=== PATIENT | male | born 1940 | race Caucasian/White ===

== ENCOUNTER → 2017-06-12 | Outpatient (CLI) | payer OTHER ==
[~2017-06-12] MED LIST: ASPCH81 PO; ATV1 PO; DONE1TAB26 PO; METO25TA3 PO; SIMV40TA2 PO; terazosin PO
[2017-06-12 11:48] LABS: BASO ABS # 0.08 K/uL (0-0.2); COMPLETE YES; EOS % 6.8 %; HEMATOCRIT 36.6 % (42-52); IG% 0.4 %; LYMPH % 17.4 %; LYMPH ABS # 1.39 K/uL (1.2-3.4); MEAN CELL VOLUME 95.6 fL (80-100); MEAN CORPUSCULAR HEMOGLOBIN 31.1 pg (25-34); MEAN CORPUSCULAR HGB CONC 32.5 g/dl (32-36); MEAN PLATELET VOLUME 10.3 fL (7.4-10.4); MONO % 9.1 %; NEUT % 65.3 %; PLATELET COUNT 210 K/uL (130-400); RED BLOOD COUNT 3.83 M/uL (4.7-6.1)
[2017-06-12 12:00] LABS: ALT/SGPT 21 U/L (12-78); AST/SGOT 22 U/L (15-37); BLOOD UREA NITROGEN 25 mg/dl (7-18); CALCIUM 8.9 mg/dl (8.5-10.1); CARBON DIOXIDE 27 mmol/L (21-32); CHLORIDE 107 mmol/L (98-107); GLUCOSE 88 mg/dl (70-99); SODIUM 141 mmol/L (136-145)
[2017-06-12 12:11] LABS: ALKALINE PHOSPHATASE 79 U/L (45-117); CHOLESTEROL 96 mg/dl (0-200); CHOLESTEROL/HDL RATIO 1.8; HDL CHOLESTEROL 52 mg/dl; LDL CHOLESTEROL CALCULATED 30 mg/dl; TRIGLYCERIDES 72 mg/dl (0-150); VERY LOW DENSITY LIPOPROT CALC 14 mg/dl
== END | disposition home or self-care (01) ==
LOC: C.LABPBG 09:19
PROVIDERS: ATTEND Internal Medicine
DX: I25.10 Atherosclerotic heart disease of native coronary artery without angina pectoris (principal); E78.5 Hyperlipidemia, unspecified; I10 Essential (primary) hypertension; N28.9 Disorder of kidney and ureter, unspecified; I65.29 Occlusion and stenosis of unspecified carotid artery; G47.33 Obstructive sleep apnea (adult) (pediatric); F09 Unspecified mental disorder due to known physiological condition; R73.9 Hyperglycemia, unspecified

== ENCOUNTER → 2017-12-11 | Outpatient (CLI) | payer OTHER ==
[2017-12-11 13:12] LABS: BASO % 0.8 %; BASO ABS # 0.07 K/uL (0-0.2); EOS % 6.3 %; EOS ABS # 0.52 K/uL (0-0.5); HEMATOCRIT 37.1 % (42-52); HEMOGLOBIN 12.1 g/dL (14.0-18.0); IG# 0.01 K/uL (0.00-0.02); LYMPH % 18.9 %; LYMPH ABS # 1.56 K/uL (1.2-3.4); MEAN CELL VOLUME 95.1 fL (80-100); MEAN CORPUSCULAR HGB CONC 32.6 g/dl (32-36); MEAN PLATELET VOLUME 10.7 fL (7.4-10.4); MONO % 10.4 %; MONO ABS # 0.86 K/uL (0.11-0.59); NEUT % 63.5 %; NEUT ABS # 5.22 K/uL (1.4-6.5); PLATELET COUNT 205 K/uL (130-400); RED CELL DISTRIBUTION WIDTH CV 13.1 % (11.5-14.5); RED CELL DISTRIBUTION WIDTH SD 45.1 fL (36.4-46.3); WHITE BLOOD COUNT 8.24 K/uL (4.8-10.8)
[2017-12-11 14:50] LABS: ALBUMIN 3.8 gm/dl (3.4-5.0); ALT/SGPT 23 U/L (12-78); AST/SGOT 20 U/L (15-37); BLOOD UREA NITROGEN 31 mg/dl (7-18); CARBON DIOXIDE 28 mmol/L (21-32); CREATININE 1.72 mg/dl (0.60-1.40); GLUCOSE 99 mg/dl (70-99); POTASSIUM 4.1 mmol/L (3.5-5.1); SODIUM 138 mmol/L (136-145)
[2017-12-11 14:53] LABS: ALKALINE PHOSPHATASE 79 U/L (45-117); CHOLESTEROL 95 mg/dl (0-200); LDL CHOLESTEROL CALCULATED 31 mg/dl; TOTAL PROTEIN 7.4 gm/dl (6.4-8.2)
== END | disposition home or self-care (01) ==
LOC: C.LABPBG 10:49
PROVIDERS: ATTEND Internal Medicine
DX: I25.10 Atherosclerotic heart disease of native coronary artery without angina pectoris (principal); E78.5 Hyperlipidemia, unspecified; I12.9 Hypertensive chronic kidney disease with stage 1 through stage 4 chronic kidney disease, or unspecified chronic kidney disease; I65.29 Occlusion and stenosis of unspecified carotid artery; F09 Unspecified mental disorder due to known physiological condition; D63.8 Anemia in other chronic diseases classified elsewhere; N18.3 Chronic kidney disease, stage 3 (moderate)

== ENCOUNTER 2024-02-25 14:19 | Inpatient (IN) ==
--- NOTE | 2024-02-25 15:04 | Emergency Department Note ---
Impression & Plan Dementia, Combative behavior ED Provider Note HISTORY OF PRESENT ILLNESS: Patient is an 83-year-old male presenting with increasing confusion and combativeness. History was called in by the [facility] nurse. Patient has a history of dementia. Family reportedly does not feel safe having him at home because he has been combative and threatening to hurt his family. He has been hitting his head off of the table. He had his normal dose of Seroquel this morning and Ativan. This occurred about 30 minutes prior to the ambulance arrival. Patient was still reportedly combative for EMS and they gave him 2 mg of IM Versed. On arrival to the ER. The patient is pleasantly confused but is unable to articulate what happened today. He denies any pain complaints. I called and spoke with hospice nurse, [place]. Reports that patient just returned from a respite stay 2 weeks ago. Reports patient has similar episodes and family is reluctant normally for placement. Patient gets 75 mg seroquel QAM and 50 mg QPM. Patient gets methotrexate 5 tablets weekly (Started on 02/21). Lorazepam 0.5 Q4H. ROS: as above PHYSICAL EXAM: Constitutional: Patient appears in no acute distress. HENT: Head: Normocephalic and atraumatic. Eyes: EOMI, PERRL Mouth/Throat: Mucous membranes moist. Neck: Trachea midline. Neck supple. Cardiovascular: RRR, No murmurs, rubs or gallops. Intact distal pulses. Pulmonary/Chest: No respiratory distress. Breath sounds clear and equal bilaterally. No wheezes or rales. Abdominal: Abdomen soft, no tenderness, rebound or guarding. Musculoskeletal: No edema, tenderness or deformity noted. Skin: Warm and dry. Skin tears to LLE Neurological: Alert. CN II-XII grossly intact, moving all extremities spontaneously. MDM: - Vitals signs showed bradycardia - History obtained via EMS and patient's hospice nurse, given patient's dementia. History as above. - Chronic conditions affecting care: HTN; CKD; dementia; depression;; GERD; aortic stenosis - Differential diagnoses include, but are not limited to: UTI; pneumonia; progression of dementia; electrolyte abnormality - Order placed for continuous cardiac monitoring. At this time, monitor showed rate of 60 bpm with normal sinus rhythm, per my interpretation. - External medical records reviewed. Palliative care report dated 02/14/2024 was reviewed. Hospice has been managing the patient's dementia and treating him with Seroquel and lorazepam. - Laboratory workup interpreted by myself showed slight leukocytosis (WBC 11.92) with left shift; normal electrolytes; baseline CKD - Given family's concern for safety and inability to care for the patient, will admit to hospital service for potential placement. - Discussion was had with briefcase sewer about patient's case and need for admission - Hospitalist consulted for admission - [facility] ASSESSMENT AND PLAN: Diagnosis: dementia; combative behavior Plan: admit Past Med/Surg History Problem List (Updated 02/25/24 @ 16:47 by Jessica Bhagat MD) Combative behavior (Acute) Dementia (Acute) Bullous pemphigoid Dementia with behavioral disturbance Non-occlusive coronary artery disease Lumbar stenosis with neurogenic claudication Aortic stenosis, mild Elevated PSA Thoracic aortic aneurysm without rupture (Chronic) Right subclavian artery, anomalous origin (Chronic) Raynauds phenomenon (Chronic) Obstructive sleep apnea (Chronic) Insomnia (Chronic) Gout, joint (Chronic) Gastroesophageal reflux disease (Chronic) Dyslipidemia (Chronic) Depression (Chronic) Dementia (Chronic) Decreased hearing of both ears (Chronic) Carotid artery stenosis without cerebral infarction (Chronic) CKD (chronic kidney disease), stage III (Chronic) Anxiety disorder (Chronic) Anemia of chronic disease (Chronic) Hypertension (Chronic) Medical History Abdominal aortic aneurysm Diverticulosis of colon Disc degeneration, lumbar Surgical History S/P correction of deviated nasal septum S/P sinus surgery S/P knee replacement S/P TURP (status post transurethral resection of prostate) Family History Brother Prostate cancer Mother Hypertension Hearing loss Father No problems noted. Denies family history of Ovarian cancer Breast cancer Lung cancer Colorectal cancer Social History Smoking Status: Never smoker Tobacco Type: Cigarettes Age Started Using Tobacco: 20; Age Quit Using Tobacco: 50; packs per day: 0.25; Second Hand Exposure: No; Do You Dip or Chew Tobacco: No; Hx Alcohol Use: No Hx Substance Use: No Preferred Language: Burmese Communication Ability: Effective Visual Impairment: Limited Hearing Ability: Hard of Hearing Line Tester Required: No Beliefs That Will Affect Care: None marital status: Current Living Situation: Spouse current occupational status: retired Feels Safe at Home: No Childhood Exposure to Second-Hand Smoke: No Diet: regular Diet Comment: regular caffeine: Yes (coffee) during the past year weight has: remained stable Dental Care, Regularly: Yes Physical Activity Frequency: Does not Exercise Physical Activity Frequency Comment: walking when weather good. Seatbelt Use: always Sunscreen Use: No Allergies Allergies Allergy/AdvReac Type Severity Reaction Status Date / Time mold Allergy Intermediate Verified 02/13/24 11:01 pollen extracts Allergy Intermediate Verified 02/13/24 11:01 venlafaxine Allergy Unknown Rash Verified 02/13/24 11:01 Home Meds Home Medications Medication Instructions Recorded Confirmed terazosin 2 mg capsule 4 mg PO HS 09/24/20 02/25/24 brimonidine 0.2 %-timolol 0.5 % 1 drp OPL BID 09/16/23 02/25/24 eye drops (Combigan) fluoxetine 10 mg capsule See Rx Instructions .Route .COMPLEX 09/16/23 02/25/24 latanoprost 0.005 % eye drops 1 drp OPL HS 09/16/23 02/25/24 memantine 21 mg capsule 21 mg PO HS 09/16/23 02/25/24 sprinkle,extended release 24hr simvastatin 40 mg tablet 40 mg PO HS 09/16/23 02/25/24 Previous Rx's Medication Instructions Recorded omeprazole 40 mg capsule,delayed 40 mg PO DAILY #90 caps 05/22/23 release amlodipine 2.5 mg tablet 2.5 mg PO DAILY #90 tabs 06/14/23 lorazepam 0.5 mg tablet 0.5 mg PO DAILY PRN insomnia 30 11/17/23 days #30 tabs fluoxetine 20 mg capsule 20 mg PO .COMPLEX #90 caps 12/01/23 donepezil 10 mg tablet 10 mg PO DAILY 90 days #90 tabs 01/16/24 quetiapine 100 mg tablet 100 mg PO BID PRN agitation 30 01/16/24 days #60 tabs doxycycline hyclate 100 mg capsule 100 mg PO BID 21 days #42 caps 02/13/24 mupirocin 2 % topical ointment 1 applic topical BID #50 grams 02/13/24 prednisone 20 mg tablet 40 mg (2 x 20 mg) PO DAILY 20 days 02/13/24 #40 tabs Results & Data (ED) Vital Signs Vital Signs - 24 hr 02/25/24 13:35 02/25/24 14:35 02/25/24 14:35 Temperature 37.4 C Temperature Source Oral Pulse Rate 57 L Respiratory Rate 16 16 Blood Pressure 127/71 Blood Pressure Mean 89 Pulse Oximetry 98 98 Oxygen Delivery Method Room Air Room Air Room Air Sepsis Recent Fever Within 48 Hours No Sepsis New/Unexplained Change in Mental Status N/A Sepsis Action Taken by Nursing No Action Required Laboratory Data 02/25/24 15:00 02/25/24 15:00 Lab Results 02/25/24 Range/Units 15:00 WBC 11.92 H (4.8-10.8) K/ul RBC 3.62 L (4.70-6.10) M/uL Hgb 10.7 L (14.0-18.0) g/dl Hct 33.5 L (42.0-52.0) % MCV 92.5 (80.0-100.0) fL MCH 29.6 (25.0-34.0) pg MCHC 31.9 L (32.0-36.0) g/dL RDW Std Deviation 47.6 H (36.4-46.3) fL RDW Coeff of Sue 14.0 (11.5-14.5) % Plt Count 232 (130-400) K/uL MPV 10.8 (9.4-12.4) fL Immature Gran % (Auto) 1.8 % Neut % (Auto) 88.0 % Lymph % (Auto) 4.9 % Swisher % (Auto) 4.9 % Eos % (Auto) 0.3 % Baso % (Auto) 0.1 % Neut # (Auto) 10.50 H (1.40-6.50) K/uL Lymph # (Auto) 0.58 L (1.20-3.40) K/uL Swisher # (Auto) 0.58 (0.11-0.59) K/uL Eos # (Auto) 0.03 (0.00-0.50) K/uL Baso # (Auto) 0.01 (0.00-0.20) K/uL Immature Gran # (Auto) 0.22 H (0.01-0.20) K/uL Sodium 136 (136-145) mmol/L Potassium 4.2 (3.5-5.1) mmol/L Chloride 103 (98-107) mmol/L Carbon Dioxide 28 (21-32) mmol/L Anion Gap 5 (3-11) BUN 42 H (6-23) mg/dl Creatinine 1.54 H (0.6-1.4) mg/dl Est Cr Clr Drug Dosing 37.6 ml/min Est GFR ( Amer) 47.6 ml/min Est GFR (Non-Af Amer) 41.1 ml/min BUN/Creatinine Ratio 27.3 H (10-20) Glucose 128 H (70-99(Fasting)) mg/dl Calcium 8.7 (8.6-10.3) mg/dl Magnesium 2.0 (1.7-2.4) mg/dl Total Bilirubin 0.3 (0.2-1.0) mg/dl AST 20 (13-39) U/L ALT 13 (7-52) U/L Alkaline Phosphatase 76 (34-104) U/L Total Protein 5.9 L (6.0-8.3) gm/dl Albumin 3.4 (3.4-5.0) gm/dl Globulin 2.5 (2.5-4.0) gm/dl Albumin/Globulin Ratio 1.4 (0.9-2) Discharge Plan Visit Data Chief Complaint: Confusion Stated Complaint: COMBATIVE, ED Provider: Jessica Bhagat Discharge Problem: Dementia, Combative behavior Forms Stand Alone Forms: My [facility] Prescriptions Prescriptions: No Action omeprazole 40 mg capsule,delayed release(DR/EC) 40 mg PO DAILY Qty: 90 3RF amlodipine 2.5 mg tablet 2.5 mg PO DAILY Qty: 90 3RF lorazepam 0.5 mg tablet 0.5 mg PO DAILY PRN (Reason: insomnia) 30 Days Qty: 30 2RF Rx Instructions: Pt takes at 5:00pm if needed fluoxetine 20 mg capsule 20 mg PO .COMPLEX Qty: 90 3RF Rx Instructions: 20 mg orally Take 1 capsule/day with each 10 mg capsule for total dose of 30 mg/day; donepezil 10 mg tablet 10 mg PO DAILY 90 Days Qty: 90 3RF quetiapine 100 mg tablet 100 mg PO BID PRN (Reason: agitation) 30 Days Qty: 60 5RF prednisone 20 mg tablet 40 mg PO DAILY 20 Days Qty: 40 0RF doxycycline hyclate 100 mg capsule 100 mg PO BID 21 Days Qty: 42 0RF Rx Instructions: should be finished around monday mupirocin 2 % ointment 1 applic topical BID Qty: 50 3RF terazosin 2 mg capsule 4 mg PO HS latanoprost 0.005 % drops 1 drp OPL HS brimonidine-timolol [Combigan] 0.2-0.5 % drops 1 drp OPL BID memantine 21 mg capsule,sprinkle,ER 24hr 21 mg PO HS Rx Instructions: Per spouse, pt hasn't started the 28mg dose yet that is listed on extended medication history. simvastatin 40 mg tablet 40 mg PO HS Rx Instructions: TAKE ONE TABLET BY MOUTH EVERY DAY fluoxetine 10 mg capsule See Rx Instructions .ROUTE .COMPLEX Rx Instructions: take 10mg with 20 mg cap for total dose of 30 mg per day Referrals Referrals: Tanja Luis, [Primary Care Provider] -
[2024-02-25 15:18] LABS: Basophils # (auto) 0.01 K/uL (0.00-0.20); Basophils % (auto) 0.1 %; Eosinophils # (auto) 0.03 K/uL (0.00-0.50); Eosinophils % (auto) 0.3 %; Hematocrit (blood only) 33.5 % (42.0-52.0); Hemoglobin 10.7 g/dl (14.0-18.0); Immature Granulocytes # (auto) 0.22 K/uL (0.01-0.20); Immature Granulocytes % (auto) 1.8 %; Lymphocytes # (auto) 0.58 K/uL (1.20-3.40); Lymphocytes % (auto) 4.9 %; Mean Corpuscular Hemoglobin 29.6 pg (25.0-34.0); Mean Corpuscular Hgb Conc 31.9 g/dL (32.0-36.0); Mean Corpuscular Volume 92.5 fL (80.0-100.0); Mean Platelet Volume 10.8 fL (9.4-12.4); Monocytes # (auto) 0.58 K/uL (0.11-0.59); Monocytes % (auto) 4.9 %; Platelet Count 232 K/uL (130-400); RDW Standard Deviation 47.6 fL (36.4-46.3); Red Blood Count 3.62 M/uL (4.70-6.10); White Blood Count 11.92 K/ul (4.8-10.8)
[2024-02-25 15:40] LABS: Albumin Globulin Ratio 1.4 (0.9-2); Albumin Level 3.4 gm/dl (3.4-5.0); BUN Creatinine Ratio 27.3 (10-20); Bilirubin,Total 0.3 mg/dl (0.2-1.0); Calcium 8.7 mg/dl (8.6-10.3); Creatinine Clr Calc Pharmacy 37.6 ml/min; Est GFR (African American) 47.6 ml/min; Est GFR (Non-African American) 41.1 ml/min; Globulin 2.5 gm/dl (2.5-4.0); Potassium 4.2 mmol/L (3.5-5.1); Total Protein 5.9 gm/dl (6.0-8.3)
--- NOTE | 2024-02-25 16:05 | History & Physical Report ---
Date of Service February 25, 2024 Assessment & Plan (1) Dementia with behavioral disturbance: Plan: Agitation and combative behavior the morning of 02/24 Patient is currently enrolled in hospice, but lives at home Family is concerned for self-harm behavior, and the safety of family members, and are okay dis-enrolling him from hospice for placement One-to-one sitter Donepezil 10 mg p.o. daily Memantine HS Seroquel 100 mg p.o. BID PRN for agitation Additional Ativan 0.5 mg IV q8h as needed for agitation Fall precautions Case management consult placed for SNF placement A.m. CBC, BMP x 1 (2) Bullous pemphigoid: Plan: Patient was recently placed on prednisone 40 mg daily x 20 days for development of a rash on his body Per PCP note, suspected bullous pemphigoid; unclear if this was secondary to a drug reaction Prednisone may be contributing to his uncontrolled agitation Family decreased to 20 mg a couple days ago Will continue with prednisone 10 mg daily, and titrate down as tolerated Daily wound care Continue doxycycline 100 mg p.o. BID to completion of 20 day course (prescribed x 20 days; will complete on 03/14/24) Mupirocin BID (3) Insomnia: Plan: Patient normally takes lorazepam 0.5 mg PRN at night for insomnia Melatonin HS PRN (4) Leukocytosis: Plan: Likely secondary to steroid use UA ordered, pending Bladder scan as needed (5) Anemia: Plan: Mild; chronic; Hgb 10.7 on arrival No signs of active bleeding on clinical exam Recheck a.m. CBC (6) CKD (chronic kidney disease), stage III: Plan Disposition: Admit to [facility] Full code Regular diet, easy to chew (aspiration precautions) VTE PPx: Hold mechanical DVT PPx given lesions/rashes on the LEs; will hold chemical DVT PPx as patient is a high risk fall candidate (consider adding on for extended stay) History of Present Illness Chief Complaint: Confusion, combative behavior Primary Care Provider: DO Vineet Luis is an 83yo male with PMH of dementia, ANITHA, anxiety, depression, HTN, CKD, anemia of chronic disease, and dyslipidemia. He presented via EMS from home for combative behavior on 02/24. Patient is currently on hospice for his advanced dementia; he is seen by [facility] nursing; however he lives at home. This morning, he received his regular dementia medications (3 tablets of Seroquel and 1 of Ativan) but still developed agitation for approximately 1.5 hours. Patient's daughter/ are in the room and provide history. They report that he was yelling, screaming, and swinging at the ellison. At 1 point he was being on the window and they were concerned he was going to break it. Patient's daughter also was concerned he might of been hallucinating. This is not the first time that he has become agitated, but this was the first time they were unable to get him under control. While patient denied suicidal ideations or voiced self-harm, he did express thoughts and ideas of harming others; daughter reports he said, "I will get a gun and shoot you". Versed 2 mg IM was given en route at 1340 prior to arrival. The patient's daughter believes this may be secondary to recently starting prednisone on 02/12 for a skin outbreak. Patient was placed on prednisone 40 mg daily, but recently decreased it to 20 mg daily as they believed it was increasing his agitation. The rash on his body was originally thought to be bulbous pemphigoid, as patient reports it was very itchy. While patient is currently on hospice for his advanced dementia, family does not feel he is safe at home and would like for him to be placed. They are okay dis-enrolling him from hospice if needed so that the patient can be admitted. They do not feel he is safe at home, and they are concerned he will harm others. Patient is mildly bradycardic at 57 bpm at time of admission; vitals otherwise stable. ED course: Unable to obtain ROS from patient at this time. However, patient and patient's daughter at bedside report no complaints of fever, chills, sweating, chest pain, trouble breathing, or abdominal pain. Allergies Allergy/AdvReac Type Severity Reaction Status Date / Time mold Allergy Intermediate Verified 02/13/24 11:01 pollen extracts Allergy Intermediate Verified 02/13/24 11:01 venlafaxine Allergy Unknown Rash Verified 02/13/24 11:01 Home Medications Medication Instructions Recorded Confirmed Type terazosin 2 mg capsule 4 mg PO HS 09/24/20 02/25/24 History omeprazole 40 mg capsule,delayed 40 mg PO DAILY #90 caps 05/22/23 02/25/24 Rx release amlodipine 2.5 mg tablet 2.5 mg PO DAILY #90 tabs 06/14/23 02/25/24 Rx brimonidine 0.2 %-timolol 0.5 % 1 drp OPL BID 09/16/23 02/25/24 History eye drops (Combigan) fluoxetine 10 mg capsule See Rx Instructions .Route .COMPLEX 09/16/23 02/25/24 History latanoprost 0.005 % eye drops 1 drp OPL HS 09/16/23 02/25/24 History memantine 21 mg capsule 21 mg PO HS 09/16/23 02/25/24 History sprinkle,extended release 24hr simvastatin 40 mg tablet 40 mg PO HS 09/16/23 02/25/24 History lorazepam 0.5 mg tablet 0.5 mg PO DAILY PRN insomnia 30 11/17/23 02/25/24 Rx days #30 tabs fluoxetine 20 mg capsule 20 mg PO .COMPLEX #90 caps 12/01/23 02/25/24 Rx donepezil 10 mg tablet 10 mg PO DAILY 90 days #90 tabs 01/16/24 02/25/24 Rx quetiapine 100 mg tablet 100 mg PO BID PRN agitation 30 01/16/24 02/25/24 Rx days #60 tabs doxycycline hyclate 100 mg capsule 100 mg PO BID 21 days #42 caps 02/13/24 02/25/24 Rx mupirocin 2 % topical ointment 1 applic topical BID #50 grams 02/13/24 02/25/24 Rx prednisone 20 mg tablet 40 mg (2 x 20 mg) PO DAILY 20 days 02/13/24 02/25/24 Rx #40 tabs Past Med/Surg History Problem List (Updated 02/25/24 @ 17:36 by Graham Kirk PA-C) Anemia Rash Leukocytosis Combative behavior (Acute) Dementia (Acute) Bullous pemphigoid Dementia with behavioral disturbance Non-occlusive coronary artery disease Lumbar stenosis with neurogenic claudication Aortic stenosis, mild Elevated PSA Thoracic aortic aneurysm without rupture (Chronic) Right subclavian artery, anomalous origin (Chronic) Raynauds phenomenon (Chronic) Obstructive sleep apnea (Chronic) Insomnia (Chronic) Gout, joint (Chronic) Gastroesophageal reflux disease (Chronic) Dyslipidemia (Chronic) Depression (Chronic) Dementia (Chronic) Decreased hearing of both ears (Chronic) Carotid artery stenosis without cerebral infarction (Chronic) CKD (chronic kidney disease), stage III (Chronic) Anxiety disorder (Chronic) Anemia of chronic disease (Chronic) Hypertension (Chronic) Medical History (Updated 02/25/24 @ 17:36 by Graham Kirk PA-C) Abdominal aortic aneurysm Diverticulosis of colon Disc degeneration, lumbar Surgical History S/P correction of deviated nasal septum S/P sinus surgery S/P knee replacement S/P TURP (status post transurethral resection of prostate) Family History Brother Prostate cancer Mother Hypertension Hearing loss Father No problems noted. Denies family history of Ovarian cancer Breast cancer Lung cancer Colorectal cancer Social History Smoking Status: Never smoker Tobacco Type: Cigarettes Age Started Using Tobacco: 20; Age Quit Using Tobacco: 50; packs per day: 0.25; Second Hand Exposure: No; Do You Dip or Chew Tobacco: No; Hx Alcohol Use: No Hx Substance Use: No Preferred Language: Palauan Communication Ability: Effective Visual Impairment: Limited Hearing Ability: Hard of Hearing Joinery Machinist Required: No Beliefs That Will Affect Care: None marital status: Current Living Situation: Spouse current occupational status: retired Feels Safe at Home: No Childhood Exposure to Second-Hand Smoke: No Diet: regular Diet Comment: regular caffeine: Yes (coffee) during the past year weight has: remained stable Dental Care, Regularly: Yes Physical Activity Frequency: Does not Exercise Physical Activity Frequency Comment: walking when weather good. Seatbelt Use: always Sunscreen Use: No Review of Systems 2 Review of Systems: See HPI above Physical Exam 2 Physical Exam: General: no acute distress; non-toxic appearing; frail appearing; cooperative at time of admission; SpO2 98% on RA HEENT: normocephalic, atraumatic; no scleral icterus; PERRLA; moist mucus membrane; unable to assess vision and hearing Neck: supple; no lymphadenopathy; trachea midline Skin: warm, dry without signs of tenting; no cyanosis; numerous rashes and lesions noted on the chest, back, and lower extremities (see photos below) CV: chest wall NTP; RRR; S1/S2 normal; no murmurs/rubs/gallops; pulses intact and symmetric at radial, DP, and PT Lungs: no acute respiratory distress; symmetrical chest wall expansion; clear breath sounds across all lung owusu w/o adventitious sounds; no wheezing ABD: Soft, NTP; BS present; no rebound/guarding; no distention MSK: no tics or fasciculations; no edema noted in the LEs b/l, nonerythematous, but lesions noted (see photos below) Neuro: Not oriented to name, , location, or month; does not respond to questioning; no focal deficits; unable to assess sensation Results & Data Results & Data Vital Signs (Past 12 Hours) Vital Signs Temp Pulse Resp BP Pulse Ox O2 Del Method 02/25/24 14:35 16 98 Room Air 02/25/24 14:35 Room Air 02/25/24 13:35 37.4 C 57 L 16 127/71 98 Room Air Laboratory Results Abnormal lab results 02/25/24 Range/Units 15:00 WBC 11.92 H (4.8-10.8) K/ul RBC 3.62 L (4.70-6.10) M/uL Hgb 10.7 L (14.0-18.0) g/dl Hct 33.5 L (42.0-52.0) % MCHC 31.9 L (32.0-36.0) g/dL RDW Std Deviation 47.6 H (36.4-46.3) fL Neut # (Auto) 10.50 H (1.40-6.50) K/uL Lymph # (Auto) 0.58 L (1.20-3.40) K/uL Immature Gran # (Auto) 0.22 H (0.01-0.20) K/uL BUN 42 H (6-23) mg/dl Creatinine 1.54 H (0.6-1.4) mg/dl BUN/Creatinine Ratio 27.3 H (10-20) Glucose 128 H (70-99(Fasting)) mg/dl Total Protein 5.9 L (6.0-8.3) gm/dl Code Status & VTE Plan Code Status Full code (patient does not exhibit capacity to make medical decisions at this time; discussed with patient's and two daughters at the bedside; despite being on hospice, patient's /POA confirms that he is a FULL CODE at time of admission and would want life-sustaining treatment, such as CPR/defibrillation/intubation, if needed) VTE Prophylaxis Plan VTE Prophylaxis will be ordered: Yes Supervising Physician Co-Signing Physician Notes I have personally seen, evaluated and examined the patient. I have also personally discussed the management of the patient with the resident physician/EFREN and I agree with the exam findings documented in the history and physical examination and the documented assessment and plan unless otherwise stated below. Brief Exam: In general this is a pleasant 83-year-old male who is alert and oriented only to person. He is pleasantly demented at this time. He is not combative at this time. He is accompanied by his 2 daughters Kori Watkins, as well his as his . He has no complaints currently. HEENT: Normocephalic atraumatic. Heart: Regular rate and rhythm I do not appreciate murmur. Lungs: Clear bilaterally. Abdomen: Soft and nontender. Extremities: Intact no significant clubbing cyanosis or edema. Skin: As described above being treated for bullous pemphigoid currently as an outpatient. On a steroid taper. This will be escalated due to his worsening mental status and combativeness. Currently on 10 mg which started the family believes on Monday. Dermatology consult could be considered on day shift if not resolving. He has lesions on his torso ventral aspect as well as his legs. See pictures above Neurologically: Again alert and oriented only to person. Again not combative at this time but apparently was quite combative earlier today prior to medications. Will order one-on-one observation sitter at this time this can be discontinued if the patient stabilizes with his behaviors. Assessment/plan: As described above. Please refer to orders for further planning. PG Care Time/CCT Total # of Minutes Spent Total Time Spent with Patient: Total time spent is greater than 50% in coordination of care (as documented) at patient's floor/unit and/or counseling patient: C[place] [address] INT INP/OBS CARE 3/75MIN Patient Type Established Medical Decision Making Moderate Complexity Diagnoses Dementia with behavioral disturbance F03.918 Bullous pemphigoid L12.0 Insomnia G47.00 Leukocytosis D72.829 Anemia D64.9 Anemia type: unspecified type CKD (chronic kidney disease), stage III N18.30 Chronic kidney disease stage 3 subtype: unspecified whether 3a or 3b (5) Anemia Anemia type: unspecified type Qualified Code(s): D64.9 - Anemia, unspecified (6) CKD (chronic kidney disease), stage III Chronic kidney disease stage 3 subtype: unspecified whether 3a or 3b Qualified Code(s): N18.30 - Chronic kidney disease, stage 3 unspecified
[2024-02-25 17:51] LABS: Appearance Urine Clear (Clear); Bilirubin Urine Negative (Negative); Blood Urine Negative (Negative); Color Urine Yellow; Glucose Urine UA Negative (Negative); Ketones Urine Negative (Negative); Leukocyte Esterase Urine Negative (Negative); Nitrite Urine Negative (Negative); Protein Urine Negative (Negative); Specific Gravity Urine 1.016 (1.000-1.030); Urobilinogen Urine Negative (Negative); pH Urine 7.5 (4.5-7.5)
[2024-02-25] MEDS ORDERED: QUEtiapine FUMARATE 100 MG TABLET PO PRN (18:50)
[2024-02-25 20:08] LABS: BUN Creatinine Ratio 26.6 (10-20); Calcium 8.8 mg/dl (8.6-10.3); Creatinine Clr Calc Pharmacy 40.5 ml/min; Est GFR (African American) 52.1 ml/min
[2024-02-25] MEDS: ACETAMINOPHEN 325 MG TAB PO PRN (20:13)
[2024-02-25] MEDS: TERAZOSIN HCL 1 MG CAP PO SCH (20:14)
[2024-02-25] MEDS: MUPIROCIN 2% OINT 22 GM TUBE TOP SCH (20:14)
[2024-02-25] MEDS: LATANOPROST 0.005% OP SOLN 2.5 ML BTL OPL SCH (20:15)
[2024-02-25] MEDS: SIMVASTATIN 40 MG TAB PO SCH (20:15)
[2024-02-25] MEDS: DOXYCYCLINE HYCLATE 100 MG CAP PO SCH (20:15)
[2024-02-25] MEDS: FLUoxetine HCL 10 MG CAP PO SCH (21:47)
[2024-02-25] MEDS: FLUoxetine HCL 20 MG CAP PO SCH (21:47)
[2024-02-25] MEDS: MEMANTINE HCL 5 MG TAB PO SCH (21:47)
[2024-02-26 06:10] LABS: Basophils # (auto) 0.03 K/uL (0.00-0.20); Basophils % (auto) 0.3 %; Eosinophils # (auto) 0.15 K/uL (0.00-0.50); Eosinophils % (auto) 1.3 %; Hematocrit (blood only) 29.5 % (42.0-52.0); Hemoglobin 9.5 g/dl (14.0-18.0); Immature Granulocytes # (auto) 0.32 K/uL (0.01-0.20); Immature Granulocytes % (auto) 2.7 %; Lymphocytes # (auto) 2.03 K/uL (1.20-3.40); Mean Corpuscular Hemoglobin 29.4 pg (25.0-34.0); Mean Corpuscular Hgb Conc 32.2 g/dL (32.0-36.0); Mean Corpuscular Volume 91.3 fL (80.0-100.0); Mean Platelet Volume 10.5 fL (9.4-12.4); Monocytes % (auto) 10.1 %; Neutrophils % (auto) 68.6 %; Platelet Count 217 K/uL (130-400); RDW Coefficient of Variation 13.9 % (11.5-14.5); RDW Standard Deviation 46.8 fL (36.4-46.3); Red Blood Count 3.23 M/uL (4.70-6.10); White Blood Count 11.93 K/ul (4.8-10.8)
[2024-02-26] MEDS: predniSONE 10 MG TABLET PO SCH (09:25)
[2024-02-26] MEDS: PANTOprazole 40 MG TAB PO SCH (09:25)
[2024-02-26] MEDS: DONEPEZIL HCL 10 MG TAB PO SCH (09:26)
[2024-02-26] MEDS: LORazepam 0.5 MG in SYRINGE 0.25 ML IV PRN (09:35)
[2024-02-26] MEDS: QUEtiapine FUMARATE 25 MG TABLET PO SCH (10:21)
[2024-02-26] MEDS: amLODIPine BESYLATE 5 MG TAB PO SCH (10:31)
--- NOTE | 2024-02-26 12:14 | Hospitalist Progress Note ---
Date of Service February 26, 2024 Assessment & Plan (1) Dementia with behavioral disturbance: Plan: Seroquel 50 mg twice daily scheduled dosing. Prozac has been discontinued. Supportive care. He also takes Aricept and Namenda.. Family is seeking SNF placement (2) Bullous pemphigoid: Plan: Patient was recently placed on prednisone 40 mg daily x 20 days for a rash. Suspected bullous pemphigoid per PCP. Prednisone has been down titrated this admission. He also remains on oral doxycycline through March 14. (3) Insomnia: Plan: Patient normally takes lorazepam 0.5 mg PRN at night for insomnia. Melatonin HS PRN (4) Leukocytosis: Plan: Likely secondary to steroid use. No overt evidence of infection (5) Anemia: Plan: Mild. Chronic. No signs of active GI bleeding. (6) CKD (chronic kidney disease), stage III: Plan: Serial labs. Monitor intake and output. Stable Plan Anticipate SNF placement when arrangements are finalized. Admission and Anticipated Discharge Date Admission Date: February 25, 2024 Subjective Awake. Oriented x 1. Unpleasant. Seroquel started at 50 mg twice daily scheduled dosing. Prednisone has already been tapered down. Prozac has been discontinued now that he is on Seroquel. Prozac probably had little effect anyway on his current symptoms and is only adding potential drug interaction. Review of Systems 2 Review of Systems: The patient is unable or unwilling to answer any questions regarding review of systems at this time Physical Exam 2 Physical Exam: General-alert and oriented x1, unpleasant. No fever, no chills HEENT-head atraumatic and normocephalic, pupils equal and reactive to light, extraocular muscles intact Neck-no lymphadenopathy or thyromegaly, trachea midline Chest-clear to auscultation. No rales, wheezing or rhonchi Cardiac-regular rate and rhythm, normal S1 and S2 Abdomen-normal bowel sounds, no hepatosplenomegaly Extremities-no cyanosis, clubbing, or edema Neuro-cranial nerves II through XII intact, motor and sensory function within normal limits, strength symmetrical, no focal deficits Psych- unpleasant affect. Results & Data Results & Data Vital Signs (Past 12 Hours) Vital Signs Temp Pulse Resp BP Pulse Ox O2 Del Method 02/26/24 10:30 36.9 C 58 L 16 165/87 H 96 Room Air Laboratory Results 02/26/24 05:41 02/25/24 19:26 PG Care Time/CCT Total # of Minutes Spent Total Time Spent with Patient: Total time spent is greater than 50% in coordination of care (as documented) at patient's floor/unit and/or counseling patient: Coding Level of Care Code 07805 SUB INP/OBS CARE 3/50MIN Diagnoses Dementia with behavioral disturbance F03.918 Bullous pemphigoid L12.0 Insomnia G47.00 Leukocytosis D72.829 Anemia D64.9 Anemia type: unspecified type CKD (chronic kidney disease), stage III N18.30 Chronic kidney disease stage 3 subtype: unspecified whether 3a or 3b (5) Anemia Anemia type: unspecified type Qualified Code(s): D64.9 - Anemia, unspecified (6) CKD (chronic kidney disease), stage III Chronic kidney disease stage 3 subtype: unspecified whether 3a or 3b Qualified Code(s): N18.30 - Chronic kidney disease, stage 3 unspecified
[2024-02-26] MEDS: BRIMONIDINE TARTRATE 0.2% 5ML OPL SCH (22:10)
[2024-02-26] MEDS: TIMOLOL MALEATE 0.5% OP SOLN 5 ML BTL OPL SCH (22:11)
--- NOTE | 2024-02-27 13:03 | Hospitalist Progress Note ---
Date of Service February 27, 2024 Assessment & Plan (1) Dementia with behavioral disturbance: Plan: Seroquel 50 mg twice daily scheduled dosing appears to have helped. Prozac has been discontinued. Supportive care. He also takes Aricept and Namenda.. Family is seeking SNF placement (2) Bullous pemphigoid: Plan: Patient was recently placed on prednisone 40 mg daily x 20 days for a rash. Suspected bullous pemphigoid per PCP. Prednisone has been down titrated this admission. He also remains on oral doxycycline through March 14. (3) Insomnia: Plan: Patient normally takes lorazepam 0.5 mg PRN at night for insomnia. Melatonin HS PRN (4) Leukocytosis: Plan: Likely secondary to steroid use. No overt evidence of infection (5) Anemia: Plan: Mild. Chronic. No signs of active GI bleeding. (6) CKD (chronic kidney disease), stage III: Plan: Serial labs. Monitor intake and output. Stable Plan Anticipate SNF placement when arrangements are finalized. He is medically stable for discharge Admission and Anticipated Discharge Date Admission Date: February 25, 2024 Subjective Alert. He seems in better spirits today, February 26. He is now on twice daily scheduled dosing of Seroquel. He chronically has difficulty voiding and bladder volume is being watched with ultrasound. He remains on his terazosin. SNF placement is pending. Review of Systems 2 Review of Systems: The patient is unable or unwilling to answer any questions regarding review of systems at this time Physical Exam 2 Physical Exam: General-alert and oriented x1, more pleasant today, February 26. No fever, no chills HEENT-head atraumatic and normocephalic, pupils equal and reactive to light, extraocular muscles intact Neck-no lymphadenopathy or thyromegaly, trachea midline Chest-clear to auscultation. No rales, wheezing or rhonchi Cardiac-regular rate and rhythm, normal S1 and S2 Abdomen-normal bowel sounds, no hepatosplenomegaly Extremities-no cyanosis, clubbing, or edema Neuro-cranial nerves II through XII intact, motor and sensory function within normal limits, strength symmetrical, no focal deficits Psych-normal affect. Normal mood Results & Data Results & Data Vital Signs (Past 12 Hours) Vital Signs Temp Pulse Resp BP Pulse Ox O2 Del Method 02/27/24 09:10 139/65 02/27/24 07:47 36.8 C 53 L 18 177/76 H 98 Room Air 02/27/24 05:15 36.4 C L 63 20 176/81 H 99 Room Air Laboratory Results 02/26/24 05:41 02/25/24 19:26 PG Care Time/CCT Total # of Minutes Spent Total Time Spent with Patient: Total time spent is greater than 50% in coordination of care (as documented) at patient's floor/unit and/or counseling patient: Coding Level of Care Code 67702 SUB INP/OBS CARE 2/35MIN Diagnoses Dementia with behavioral disturbance F03.918 Bullous pemphigoid L12.0 Insomnia G47.00 Leukocytosis D72.829 Anemia D64.9 Anemia type: unspecified type CKD (chronic kidney disease), stage III N18.30 Chronic kidney disease stage 3 subtype: unspecified whether 3a or 3b (5) Anemia Anemia type: unspecified type Qualified Code(s): D64.9 - Anemia, unspecified (6) CKD (chronic kidney disease), stage III Chronic kidney disease stage 3 subtype: unspecified whether 3a or 3b Qualified Code(s): N18.30 - Chronic kidney disease, stage 3 unspecified
[2024-02-27] MEDS: MELATONIN 3 MG TAB PO PRN (20:42)
[2024-02-27] MEDS: TRIAMCINOLONE ACET 0.5% CR 15 GM TUBE EXT SCH (20:44)
[2024-02-28] MEDS ORDERED: TRIAMCINOLONE ACET 0.1% OINT 454 GM EXT PRN (11:31)
--- NOTE | 2024-02-28 16:26 | Hospitalist Progress Note ---
Date of Service February 28, 2024 Assessment & Plan (1) Dementia with behavioral disturbance: Plan: Seroquel 50 mg twice daily scheduled dosing appears to have helped. Prozac has been discontinued. Supportive care. He also takes Aricept and Namenda. Family is seeking SNF placement at [place] (2) Bullous pemphigoid: Plan: Patient was recently placed on prednisone 40 mg daily x 20 days for a rash. Suspected bullous pemphigoid per PCP. Prednisone has been down titrated this admission. He also remains on oral doxycycline through March 14. (3) Insomnia: Plan: Patient normally takes lorazepam 0.5 mg PRN at night for insomnia. Melatonin HS PRN (4) Leukocytosis: Plan: Likely secondary to steroid use. No overt evidence of infection (5) Anemia: Plan: Mild. Chronic. No signs of active GI bleeding. (6) CKD (chronic kidney disease), stage III: Plan: Serial labs. Monitor intake and output. Stable Plan Anticipate SNF placement when arrangements are finalized. He is medically stable for discharge, hopefully to [place] tomorrow, February 28 Admission and Anticipated Discharge Date Admission Date: February 25, 2024 Subjective Awake and alert. He appears to be much more calm. He is taking his Seroquel 50 mg twice daily. Prozac has been discontinued. Awaiting placement at [facility]. Hopefully tomorrowFebruary 28. His was at the bedside and I was able to speak with her Review of Systems 2 Review of Systems: The patient is unable or unwilling to answer any questions regarding review of systems at this time Physical Exam 2 Physical Exam: General-alert and oriented x1, pleasant now. No fever, no chills HEENT-head atraumatic and normocephalic, pupils equal and reactive to light, extraocular muscles intact Neck-no lymphadenopathy or thyromegaly, trachea midline Chest-clear to auscultation. No rales, wheezing or rhonchi Cardiac-regular rate and rhythm, normal S1 and S2 Abdomen-normal bowel sounds, no hepatosplenomegaly Extremities-no cyanosis, clubbing, or edema Neuro-cranial nerves II through XII intact, motor and sensory function within normal limits, strength symmetrical, no focal deficits Psych-normal affect. Normal mood Results & Data Results & Data Vital Signs (Past 12 Hours) Vital Signs Temp Pulse Resp BP Pulse Ox O2 Del Method 02/28/24 14:33 36.8 C 60 17 126/81 98 Room Air 02/28/24 07:59 36.5 C 52 L 16 145/66 H 100 Room Air 02/28/24 07:30 Room Air Laboratory Results 02/26/24 05:41 02/25/24 19:26 PG Care Time/CCT Total # of Minutes Spent Total Time Spent with Patient: Total time spent is greater than 50% in coordination of care (as documented) at patient's floor/unit and/or counseling patient: Coding Level of Care Code 80964 SUB INP/OBS CARE 2/35MIN Diagnoses Dementia with behavioral disturbance F03.918 Bullous pemphigoid L12.0 Insomnia G47.00 Leukocytosis D72.829 Anemia D64.9 Anemia type: unspecified type CKD (chronic kidney disease), stage III N18.30 Chronic kidney disease stage 3 subtype: unspecified whether 3a or 3b (5) Anemia Anemia type: unspecified type Qualified Code(s): D64.9 - Anemia, unspecified (6) CKD (chronic kidney disease), stage III Chronic kidney disease stage 3 subtype: unspecified whether 3a or 3b Qualified Code(s): N18.30 - Chronic kidney disease, stage 3 unspecified
[2024-02-28] MEDS: OLANZapine 10 MG/2.1 ML SDV IM STA (17:55)
[2024-02-28] MEDS: QUEtiapine FUMARATE 25 MG TABLET PO SCH (20:46)
[2024-02-29 08:42] VITALS: RESP 16; O2SAT 99
[2024-02-29] MEDS: OLANZapine 10 MG/2.1 ML SDV IM PRN (09:39)
--- NOTE | 2024-02-29 11:37 | Discharge Summary ---
Date of Service February 29, 2024 Admission HPI Per Admitting Provider Vineet is an 83yo male with PMH of dementia, ANITHA, anxiety, depression, HTN, CKD, anemia of chronic disease, and dyslipidemia. He presented via EMS from home for combative behavior on 02/24. Patient is currently on hospice for his advanced dementia; he is seen by [facility] nursing; however he lives at home. This morning, he received his regular dementia medications (3 tablets of Seroquel and 1 of Ativan) but still developed agitation for approximately 1.5 hours. Patient's daughter/ are in the room and provide history. They report that he was yelling, screaming, and swinging at the [place]. At 1 point he was being on the window and they were concerned he was going to break it. Patient's daughter also was concerned he might of been hallucinating. This is not the first time that he has become agitated, but this was the first time they were unable to get him under control. While patient denied suicidal ideations or voiced self-harm, he did express thoughts and ideas of harming others; daughter reports he said, "I will get a gun and shoot you". Versed 2 mg IM was given en route at 1340 prior to arrival. The patient's daughter believes this may be secondary to recently starting prednisone on 02/12 for a skin outbreak. Patient was placed on prednisone 40 mg daily, but recently decreased it to 20 mg daily as they believed it was increasing his agitation. The rash on his body was originally thought to be bulbous pemphigoid, as patient reports it was very itchy. While patient is currently on hospice for his advanced dementia, family does not feel he is safe at home and would like for him to be placed. They are okay dis-enrolling him from hospice if needed so that the patient can be admitted. They do not feel he is safe at home, and they are concerned he will harm others. Patient is mildly bradycardic at 57 bpm at time of admission; vitals otherwise stable. ED course: Unable to obtain ROS from patient at this time. However, patient and patient's daughter at bedside report no complaints of fever, chills, sweating, chest pain, trouble breathing, or abdominal pain. Principal Diagnosis Dementia with agitation Discharge Exam General-alert and oriented x1. Agitated. No fever, no chills HEENT-head atraumatic and normocephalic, pupils equal and reactive to light, extraocular muscles intact Neck-no lymphadenopathy or thyromegaly, trachea midline Chest-clear to auscultation. No rales, wheezing or rhonchi Cardiac-regular rate and rhythm, normal S1 and S2 Abdomen-normal bowel sounds, no hepatosplenomegaly Extremities-no cyanosis, clubbing, or edema Neuro-cranial nerves II through XII intact, motor and sensory function within normal limits, strength symmetrical, no focal deficits Psych-dementia with agitation Discharge Data Allergies Allergy/AdvReac Type Severity Reaction Status Date / Time mold Allergy Intermediate Verified 02/13/24 11:01 pollen extracts Allergy Intermediate Verified 02/13/24 11:01 venlafaxine Allergy Unknown Rash Verified 02/13/24 11:01 Consultations 02/25/24 16:03 ED Decision to Admit Stat Hospital Course (1) Dementia with behavioral disturbance: Seroquel has been uptitrated to 75 mg twice a day and will be increased further to 100 mg twice a day. Prozac, Aricept and Namenda have been discontinued. Supportive care. Family has now decided to take the patient home with hospice care. (2) Bullous pemphigoid: Patient was recently placed on prednisone 40 mg daily x 20 days for a rash. Suspected bullous pemphigoid per PCP. Prednisone was down titrated this admission and subsequently discontinued as this may be aggravating his behavior. He remains on oral doxycycline through March 14. (3) Insomnia: Patient normally takes lorazepam 0.5 mg PRN at night for insomnia. Melatonin HS PRN (4) Leukocytosis: Likely secondary to steroid use. No overt evidence of infection (5) Anemia: Mild. Chronic. No signs of active GI bleeding. (6) CKD (chronic kidney disease), stage III: Serial labs. Monitor intake and output. Stable Plan Family has opted to go home with hospice care today, February 28 Total Time Total Time Spent Total Time Spent (In Minutes): 50 minutes Discharge Plan Discharge Items Patient Disposition: Hospice - Home Reason For Visit: DEMENTIA, COMBATIVE BEHAVIOR Discharge Diagnosis: Dementia with agitation Activity: Resume your previous activity Non-emergency contact: Primary Care Provider Call non-emergency contact if: your symptoms worsen Follow-up/Referrals: Tanja Luis DO [Primary Care Provider] - Diet: Regular Addtl Attending Provider Instructions: Takes Seroquel 100 mg twice daily. Prozac, Aricept, Namenda have been discontinued. Prednisone has also been discontinued Pending Studies at Discharge: No Stand-Alone Forms: My [facility] Medications and DC Order Prescriptions: New quetiapine 100 mg tablet 100 mg PO BID Qty: 60 0RF Continued omeprazole 40 mg capsule,delayed release(DR/EC) 40 mg PO DAILY Qty: 90 3RF amlodipine 2.5 mg tablet 2.5 mg PO DAILY Qty: 90 3RF lorazepam 0.5 mg tablet 0.5 mg PO DAILY PRN (Reason: insomnia) 30 Days Qty: 30 2RF Rx Instructions: Pt takes at 5:00pm if needed doxycycline hyclate 100 mg capsule 100 mg PO BID 21 Days Qty: 42 0RF Rx Instructions: should be finished around monday mupirocin 2 % ointment 1 applic topical BID Qty: 50 3RF terazosin 2 mg capsule 4 mg PO HS latanoprost 0.005 % drops 1 drp OPL HS brimonidine-timolol [Combigan] 0.2-0.5 % drops 1 drp OPL BID simvastatin 40 mg tablet 40 mg PO HS Rx Instructions: TAKE ONE TABLET BY MOUTH EVERY DAY Discontinued fluoxetine 20 mg capsule 20 mg PO .COMPLEX Qty: 90 3RF Rx Instructions: 20 mg orally Take 1 capsule/day with each 10 mg capsule for total dose of 30 mg/day; donepezil 10 mg tablet 10 mg PO DAILY 90 Days Qty: 90 3RF quetiapine 100 mg tablet 100 mg PO BID PRN (Reason: agitation) 30 Days Qty: 60 5RF prednisone 20 mg tablet 40 mg PO DAILY 20 Days Qty: 40 0RF memantine 21 mg capsule,sprinkle,ER 24hr 21 mg PO HS Rx Instructions: Per spouse, pt hasn't started the 28mg dose yet that is listed on extended medication history. fluoxetine 10 mg capsule See Rx Instructions .ROUTE .COMPLEX Rx Instructions: take 10mg with 20 mg cap for total dose of 30 mg per day Discharge Orders: Discharge Order (Routine); Ordered 02/29/24 Ordered By: Jose Carlos Suarez Admission Data Admit Date/Time: 02/25/24 16:40 Attending Provider: Erick,Jose Carlos R. Admit Provider: Peter Barclay Primary Care Provider: Tanja Luis Other [facility]: [facility] Barclay[facility] [place] Coding Level of Care Code 60219 INP/OBS DISCH >30 MIN Diagnoses Dementia with behavioral disturbance F03.918 Bullous pemphigoid L12.0 Insomnia G47.00 Leukocytosis D72.829 Anemia D64.9 Anemia type: unspecified type CKD (chronic kidney disease), stage III N18.30 Chronic kidney disease stage 3 subtype: unspecified whether 3a or 3b
--- NOTE | 2024-02-29 15:18 | Hospitalist Progress Note ---
Date of Service February 29, 2024 Assessment & Plan (1) Dementia with behavioral disturbance: Plan: Seroquel now uptitrated to 100 mg twice a day. Lorazepam 0.5 mg twice a day has been added. He takes lorazepam at home. Prozac, Aricept and Namenda have been discontinued to minimize potential drug interactions with addition of Seroquel. Supportive care. Family has now decided to take the patient home with hospice care but are unwilling to take him home today because of behavior issues. (2) Bullous pemphigoid: Plan: Patient was recently placed on prednisone 40 mg daily x 20 days for a rash. Suspected bullous pemphigoid per PCP. Prednisone was down titrated this admission and subsequently discontinued as this may be aggravating his behavior. He remains on oral doxycycline through March 14. (3) Insomnia: Plan: Patient normally takes lorazepam 0.5 mg PRN at night for insomnia. Melatonin HS PRN (4) Leukocytosis: Plan: Likely secondary to steroid use. No overt evidence of infection (5) Anemia: Plan: Mild. Chronic. No signs of active GI bleeding. (6) CKD (chronic kidney disease), stage III: Plan: Serial labs. Monitor intake and output. Stable Plan Family has opted to go home with hospice care but are hesitant to take him home today, February 28. Anticipated discharge has been canceled. Admission and Anticipated Discharge Date Admission Date: February 25, 2024 Subjective Continued behavior issues. Seroquel is now 100 mg twice a day and lorazepam has been started which she takes at home. Family is now stating they are uncomfortable taking him home. Prednisone is discontinued as this may be aggravating his behavior. Anticipated discharge has been canceled Review of Systems 2 Review of Systems: The patient is unable or unwilling to answer any questions regarding review of systems at this time Physical Exam 2 Physical Exam: General-alert but disoriented. No fever, no chills HEENT-head atraumatic and normocephalic, pupils equal and reactive to light, extraocular muscles intact Neck-no lymphadenopathy or thyromegaly, trachea midline Chest-clear to auscultation. No rales, wheezing or rhonchi Cardiac-regular rate and rhythm, normal S1 and S2 Abdomen-normal bowel sounds, no hepatosplenomegaly Extremities-no cyanosis, clubbing, or edema Neuro-cranial nerves II through XII intact, motor and sensory function within normal limits, strength symmetrical, no focal deficits Psych-baseline dementia Results & Data Results & Data Vital Signs (Past 12 Hours) Vital Signs Temp Pulse Resp BP Pulse Ox O2 Del Method 02/29/24 08:39 36.8 C 54 L 16 171/70 H 99 Room Air 02/29/24 07:30 Room Air Laboratory Results 02/26/24 05:41 02/25/24 19:26 PG Care Time/CCT Total # of Minutes Spent Total Time Spent with Patient: Total time spent is greater than 50% in coordination of care (as documented) at patient's floor/unit and/or counseling patient: Coding Level of Care Code 54771 SUB INP/OBS CARE 3/50MIN Diagnoses Dementia with behavioral disturbance F03.918 Bullous pemphigoid L12.0 Insomnia G47.00 Leukocytosis D72.829 Anemia D64.9 Anemia type: unspecified type CKD (chronic kidney disease), stage III N18.30 Chronic kidney disease stage 3 subtype: unspecified whether 3a or 3b (5) Anemia Anemia type: unspecified type Qualified Code(s): D64.9 - Anemia, unspecified (6) CKD (chronic kidney disease), stage III Chronic kidney disease stage 3 subtype: unspecified whether 3a or 3b Qualified Code(s): N18.30 - Chronic kidney disease, stage 3 unspecified
[2024-02-29] MEDS: QUEtiapine FUMARATE 100 MG TABLET PO SCH (20:20)
[2024-02-29] MEDS: LORazepam 0.5 MG TAB PO SCH (20:20)
[2024-03-01 11:47] VITALS: BP 151/83; PULSE 62; TEMP 97.7
--- NOTE | 2024-03-01 12:06 | Discharge Summary ---
Date of Service March 01, 2024 Admission HPI Per Admitting Provider Vineet is an 83yo male with PMH of dementia, ANITHA, anxiety, depression, HTN, CKD, anemia of chronic disease, and dyslipidemia. He presented via EMS from home for combative behavior on 02/24. Patient is currently on hospice for his advanced dementia; he is seen by [facility] nursing; however he lives at home. This morning, he received his regular dementia medications (3 tablets of Seroquel and 1 of Ativan) but still developed agitation for approximately 1.5 hours. Patient's daughter/ are in the room and provide history. They report that he was yelling, screaming, and swinging at the [place]. At 1 point he was being on the window and they were concerned he was going to break it. Patient's daughter also was concerned he might of been hallucinating. This is not the first time that he has become agitated, but this was the first time they were unable to get him under control. While patient denied suicidal ideations or voiced self-harm, he did express thoughts and ideas of harming others; daughter reports he said, "I will get a gun and shoot you". Versed 2 mg IM was given en route at 1340 prior to arrival. The patient's daughter believes this may be secondary to recently starting prednisone on 02/12 for a skin outbreak. Patient was placed on prednisone 40 mg daily, but recently decreased it to 20 mg daily as they believed it was increasing his agitation. The rash on his body was originally thought to be bulbous pemphigoid, as patient reports it was very itchy. While patient is currently on hospice for his advanced dementia, family does not feel he is safe at home and would like for him to be placed. They are okay dis-enrolling him from hospice if needed so that the patient can be admitted. They do not feel he is safe at home, and they are concerned he will harm others. Patient is mildly bradycardic at 57 bpm at time of admission; vitals otherwise stable. ED course: Unable to obtain ROS from patient at this time. However, patient and patient's daughter at bedside report no complaints of fever, chills, sweating, chest pain, trouble breathing, or abdominal pain. Principal Diagnosis Dementia with agitation Discharge Exam General-alert but disoriented. No fever, no chills HEENT-head atraumatic and normocephalic, pupils equal and reactive to light, extraocular muscles intact Neck-no lymphadenopathy or thyromegaly, trachea midline Chest-clear to auscultation. No rales, wheezing or rhonchi Cardiac-regular rate and rhythm, normal S1 and S2 Abdomen-normal bowel sounds, no hepatosplenomegaly Extremities-no cyanosis, clubbing, or edema Neuro-cranial nerves II through XII intact, motor and sensory function within normal limits, strength symmetrical, no focal deficits Psych-baseline dementia Discharge Data Allergies Allergy/AdvReac Type Severity Reaction Status Date / Time mold Allergy Intermediate Verified 02/13/24 11:01 pollen extracts Allergy Intermediate Verified 02/13/24 11:01 venlafaxine Allergy Unknown Rash Verified 02/13/24 11:01 Consultations 02/25/24 16:03 ED Decision to Admit Stat Hospital Course (1) Dementia with behavioral disturbance: Seroquel now uptitrated to 100 mg twice a day. Lorazepam 0.5 mg twice a day has been added. He takes lorazepam at home. Prozac, Aricept and Namenda have been discontinued to minimize potential drug interactions with addition of Seroquel. Supportive care. Family has now decided to take the patient to [facility]. (2) Bullous pemphigoid: Patient was recently placed on prednisone 40 mg daily x 20 days for a rash. Suspected bullous pemphigoid per PCP. Prednisone was down titrated this admission and subsequently discontinued as this may be aggravating his behavior. He remains on oral doxycycline through March 14. (3) Insomnia: Patient normally takes lorazepam 0.5 mg PRN at night for insomnia. Melatonin HS PRN (4) Leukocytosis: Likely secondary to steroid use. No overt evidence of infection (5) Anemia: Mild. Chronic. No signs of active GI bleeding. (6) CKD (chronic kidney disease), stage III: Serial labs. Monitor intake and output. Stable Plan Discharge to [facility] today, March 01 Total Time Total Time Spent Total Time Spent (In Minutes): 50 minutes Discharge Plan Discharge Items Patient Disposition: Transfer Jail Fac Reason For Visit: DEMENTIA, COMBATIVE BEHAVIOR Discharge Diagnosis: Dementia with agitation Activity: Resume your previous activity Non-emergency contact: Primary Care Provider Call non-emergency contact if: your symptoms worsen Follow-up/Referrals: Tanja Luis DO [Primary Care Provider] - 03/06/24 2:00 pm () Diet: Regular Addtl Attending Provider Instructions: Takes Seroquel 100 mg twice daily. Prozac, Aricept, Namenda have been discontinued. Prednisone has also been discontinued Pending Studies at Discharge: No Stand-Alone Forms: My [facility] Skilled Items Patient informed of condition?: Yes DNR: Yes Discharge Level of Care: Skilled Communicable Disease: No Discharge Prognosis: Stable Lines: None Urinary Catheter: No Medications and DC Order Prescriptions: New quetiapine 100 mg tablet 100 mg PO BID Qty: 60 0RF quetiapine 100 mg Tablet 100 mg PO BID Qty: 60 0RF lorazepam 0.5 mg Tablet 0.5 mg PO BID Qty: 60 0RF Continued omeprazole 40 mg capsule,delayed release(DR/EC) 40 mg PO DAILY Qty: 90 3RF amlodipine 2.5 mg tablet 2.5 mg PO DAILY Qty: 90 3RF lorazepam 0.5 mg tablet 0.5 mg PO DAILY PRN (Reason: insomnia) 30 Days Qty: 30 2RF Rx Instructions: Pt takes at 5:00pm if needed doxycycline hyclate 100 mg capsule 100 mg PO BID 21 Days Qty: 42 0RF Rx Instructions: should be finished around monday mupirocin 2 % ointment 1 applic topical BID Qty: 50 3RF terazosin 2 mg capsule 4 mg PO HS latanoprost 0.005 % drops 1 drp OPL HS brimonidine-timolol [Combigan] 0.2-0.5 % drops 1 drp OPL BID simvastatin 40 mg tablet 40 mg PO HS Rx Instructions: TAKE ONE TABLET BY MOUTH EVERY DAY Discontinued fluoxetine 20 mg capsule 20 mg PO .COMPLEX Qty: 90 3RF Rx Instructions: 20 mg orally Take 1 capsule/day with each 10 mg capsule for total dose of 30 mg/day; donepezil 10 mg tablet 10 mg PO DAILY 90 Days Qty: 90 3RF quetiapine 100 mg tablet 100 mg PO BID PRN (Reason: agitation) 30 Days Qty: 60 5RF prednisone 20 mg tablet 40 mg PO DAILY 20 Days Qty: 40 0RF memantine 21 mg capsule,sprinkle,ER 24hr 21 mg PO HS Rx Instructions: Per spouse, pt hasn't started the 28mg dose yet that is listed on extended medication history. fluoxetine 10 mg capsule See Rx Instructions .ROUTE .COMPLEX Rx Instructions: take 10mg with 20 mg cap for total dose of 30 mg per day Discharge Orders: Discharge Order (Routine); Ordered 03/01/24 Ordered By: Jose Carlos Portillo/Other Patient Handouts: Dementia Caregiver Tips, Delirium and Dementia Admission Data Admit Date/Time: 02/25/24 16:40 Attending Provider: Jose Carlos Suarez Admit Provider: Peter Barclay Primary Care Provider: Tanja Luis Other Providers: Peter Barclay; Saul Delgado; [facility]; Saul Preston at [place] Other Interventions: Discharge Summary Assessment (RN) Last Done: 02/29/24 12:01 Coding Level of Care Code 31711 INP/OBS DISCH >30 MIN Diagnoses Dementia with behavioral disturbance F03.918 Bullous pemphigoid L12.0 Insomnia G47.00 Leukocytosis D72.829 Anemia D64.9 Anemia type: unspecified type CKD (chronic kidney disease), stage III N18.30 Chronic kidney disease stage 3 subtype: unspecified whether 3a or 3b
== END 2024-03-01 14:15 | DRG 884 ==
LOC: ED 14:19 → 3W 16:40 → SUATTDRO 16:40 → 3W 17:26

== ENCOUNTER 2024-09-14 16:22 | Inpatient (IN) ==
--- NOTE | 2024-09-14 16:46 | Emergency Department Note ---
Impression & Plan Acute UTI (urinary tract infection), AMS (altered mental status) ED Provider Note HISTORY OF PRESENT ILLNESS: Patient is an 83-year-old male presenting with aggressive behavior. [facility] called to give report and states that the patient lives at home with his . He is currently on hospice care for his dementia. Reportedly the patient is on a waiting list for a long-term, but the patient has become too much to care for by his . He started to become very physically aggressive with the starting yesterday and continuing into today. [facility] reports that the patient needs to be admitted for placement. Patient is demented and supplies no meaningful history. He is yelling profanities at staff and attempts to hit staff or throw things at staff. ROS: as above PHYSICAL EXAM: Constitutional: Patient appears in no acute distress. HENT: Head: Normocephalic and atraumatic. Eyes: EOMI, PERRL Mouth/Throat: Mucous membranes moist. Neck: Trachea midline. Neck supple. Musculoskeletal: No edema, tenderness or deformity noted. Skin: Warm and dry. No rash, erythema, pallor or cyanosis Neurological: Alert and spontaneously moves extremities. Attempts to throw pulse ox at examiner MDM: - Vitals signs showed hypertension - History obtained via [facility] nurse via phone, given patient's dementia. History as above. - Chronic conditions affecting care: dementia; HTN; depression; HLD; ANITHA - Differential diagnoses include, but are not limited to: UTI; viral syndrome; pneumonia; electrolyte abnormality - Order placed for continuous cardiac monitoring. At this time, monitor showed rate of 75 bpm with normal sinus rhythm, per my interpretation. - External medical records reviewed. Transitional care visit note dated 04/05/2024 was reviewed. Patient was admitted to [facility] on 02/25/2024 with combative behavior from home. He had some medication changes during his admission. - EKG interpreted by myself showed normal sinus rhythm. Rate 70 bpm. QT 412. No acute ischemic changes. - Laboratory workup interpreted by myself showed normal WBC; stable electrolytes; elevated troponin (26.7) - UA showed evidence of infection. Given 2g IV rocephin - Viral respiratory panel negative - CXR negative for pneumonia, per my interpretation - Discussion was had with outsole caser about patient's case and need for admission - Hospitalist, Dr. Hubbard, consulted for admission - Patient admitted to [place] [facility]ist service for further evaluation and management. ASSESSMENT AND PLAN: Diagnosis: acute UTI; altered mental status Plan: admit Past Med/Surg History Problem List (Updated 09/14/24 @ 19:07 by Jessica Bhagat MD) AMS (altered mental status) (Acute) Acute UTI (urinary tract infection) (Acute) Rash Leukocytosis Combative behavior (Acute) Bullous pemphigoid Dementia with behavioral disturbance Non-occlusive coronary artery disease Lumbar stenosis with neurogenic claudication Aortic stenosis, mild Elevated PSA Thoracic aortic aneurysm without rupture (Chronic) Right subclavian artery, anomalous origin (Chronic) Raynauds phenomenon (Chronic) Obstructive sleep apnea (Chronic) Gout, joint (Chronic) Gastroesophageal reflux disease (Chronic) Dyslipidemia (Chronic) Depression (Chronic) Dementia (Chronic) Decreased hearing of both ears (Chronic) Carotid artery stenosis without cerebral infarction (Chronic) Anxiety disorder (Chronic) Anemia of chronic disease (Chronic) Hypertension (Chronic) Medical History (Updated 09/14/24 @ 19:07 by Jessica Bhagat MD) Anemia Insomnia CKD (chronic kidney disease), stage III Abdominal aortic aneurysm Diverticulosis of colon Disc degeneration, lumbar Surgical History S/P correction of deviated nasal septum S/P sinus surgery S/P knee replacement S/P TURP (status post transurethral resection of prostate) Family History Brother Prostate cancer Mother Hypertension Hearing loss Father No problems noted. Denies family history of Ovarian cancer Breast cancer Lung cancer Colorectal cancer Social History Smoking Status: Unknown if ever smoked Tobacco Type: Cigarettes Age Started Using Tobacco: 20; Age Quit Using Tobacco: 50; packs per day: 0.25; Second Hand Exposure: No; Do You Dip or Chew Tobacco: No; Hx Alcohol Use: No Hx Substance Use: No Preferred Language: [place] Communication Ability: Impaired Visual Impairment: Limited Hearing Ability: Hard of Hearing Chief Of Service Required: No Beliefs That Will Affect Care: None marital status: Current Living Situation: Family current occupational status: retired Feels Safe at Home: Yes Childhood Exposure to Second-Hand Smoke: No Diet: regular Diet Comment: regular caffeine: Yes (coffee) during the past year weight has: remained stable Dental Care, Regularly: Yes Physical Activity Frequency: Does not Exercise Physical Activity Frequency Comment: walking when weather good. Seatbelt Use: always Sunscreen Use: No Assistive Devices: Cane, Walker and Wheelchair Allergies Allergies Allergy/AdvReac Type Severity Reaction Status Date / Time mold Allergy Intermediate Verified 04/05/24 13:39 pollen extracts Allergy Intermediate Verified 04/05/24 13:39 venlafaxine Allergy Unknown Rash Verified 04/05/24 13:39 Home Meds Home Medications Medication Instructions Recorded Confirmed terazosin 2 mg capsule 4 mg PO HS 09/24/20 04/05/24 brimonidine 0.2 %-timolol 0.5 % 1 drp OPL BID 09/16/23 04/05/24 eye drops (Combigan) latanoprost 0.005 % eye drops 1 drp OPL HS 09/16/23 04/05/24 simvastatin 40 mg tablet 40 mg PO HS 09/16/23 04/05/24 brexpiprazole 1 mg tablet (Rexulti) 1 mg PO DAILY 04/05/24 04/05/24 ferrous fumarate 325 mg (106 mg 325 mg PO DAILY 04/05/24 04/05/24 iron) tablet folic acid 1 mg tablet 1 mg PO DAILY 04/05/24 04/05/24 methotrexate sodium 2.5 mg tablet 12.5 mg PO .Wednesdays04/05/24 04/05/24 quetiapine 25 mg tablet 25 mg PO HS 04/05/24 04/05/24 Previous Rx's Medication Instructions Recorded amlodipine 2.5 mg tablet 2.5 mg PO DAILY #90 tabs 06/14/23 lorazepam 0.5 mg tablet 0.5 mg PO DAILY PRN insomnia 30 11/17/23 days #30 tabs mupirocin 2 % topical ointment 1 applic topical BID #50 grams 02/13/24 omeprazole 40 mg capsule,delayed 40 mg PO DAILY #90 caps 07/02/24 release memantine 10 mg tablet 10 mg PO BID #60 tabs 07/03/24 Results & Data (ED) Vital Signs Vital Signs - 24 hr 09/14/24 16:34 09/14/24 16:34 09/14/24 17:48 Temperature 36.8 C Temperature Source Axillary Pulse Rate 74 Pulse Rate [Apical] 68 Respiratory Rate 17 19 Respiratory Effort / Characteristics Non-Labored Spontaneous Non-Labored Spontaneous Respiratory Depth Normal Normal Respiratory Pattern Regular Regular Blood Pressure 161/68 H Blood Pressure [Left Arm] 127/68 Blood Pressure Mean 99 Blood Pressure Mean [Left Arm] 87 Blood Pressure Position [Left Arm] Left Lateral Pulse Oximetry 98 100 Oxygen Delivery Method Room Air Room Air Room Air Sepsis Recent Fever Within 48 Hours No Sepsis New/Unexplained Change in Mental Status No Sepsis Action Taken by Nursing No Action Required 09/14/24 17:48 09/14/24 17:50 Temperature Temperature Source Pulse Rate 68 68 Pulse Rate [Apical] Respiratory Rate 20 Respiratory Effort / Characteristics Respiratory Depth Respiratory Pattern Blood Pressure Blood Pressure [Left Arm] Blood Pressure Mean Blood Pressure Mean [Left Arm] Blood Pressure Position [Left Arm] Pulse Oximetry 100 Oxygen Delivery Method Room Air Sepsis Recent Fever Within 48 Hours Sepsis New/Unexplained Change in Mental Status Sepsis Action Taken by Nursing Laboratory Data 09/14/24 17:48 09/14/24 17:48 Lab Results 09/14/24 09/14/24 09/14/24 Range/Units 16:44 17:48 18:14 WBC 10.42 (4.8-10.8) K/ul RBC 3.34 L (4.70-6.10) M/uL Hgb 10.2 L (14.0-18.0) g/dl Hct 32.5 L (42.0-52.0) % MCV 97.3 (80.0-100.0) fL MCH 30.5 (25.0-34.0) pg MCHC 31.4 L (32.0-36.0) g/dL RDW Std Deviation 54.2 H (36.4-46.3) fL RDW Coeff of Sue 15.1 H (11.5-14.5) % Plt Count 262 (130-400) K/uL MPV 10.5 (9.4-12.4) fL Immature Gran % (Auto) 0.7 % Neut % (Auto) 69.3 % Lymph % (Auto) 15.3 % [place] % (Auto) 10.5 % Eos % (Auto) 3.4 % Baso % (Auto) 0.8 % Neut # (Auto) 7.24 H (1.40-6.50) K/uL Lymph # (Auto) 1.59 (1.20-3.40) K/uL [place] # (Auto) 1.09 H (0.11-0.59) K/uL Eos # (Auto) 0.35 (0.00-0.50) K/uL Baso # (Auto) 0.08 (0.00-0.20) K/uL Immature Gran # (Auto) 0.07 (0.01-0.20) K/uL PT 11.0 (9.0-12.0) Seconds INR 1.0 (0.9-1.1) Sodium 139 (136-145) mmol/L Potassium 4.2 (3.5-5.1) mmol/L Chloride 106 (98-107) mmol/L Carbon Dioxide 28 (21-32) mmol/L Anion Gap 5 (3-11) BUN 38 H (6-23) mg/dl Creatinine 1.21 (0.6-1.4) mg/dl Est Cr Clr Drug Dosing 42.6 ml/min eGFR 59.41 BUN/Creatinine Ratio 31.4 H (10-20) Glucose 106 H (70-99(Fasting)) mg/dl Calcium 8.8 (8.6-10.3) mg/dl Magnesium 2.0 (1.7-2.4) mg/dl Total Bilirubin 0.4 (0.2-1.0) mg/dl AST 16 (13-39) U/L ALT 8 (7-52) U/L Alkaline Phosphatase 73 (34-104) U/L Troponin I High Sens 26.7 H (0-20) pg/ml Total Protein 6.7 (6.0-8.3) gm/dl Albumin 3.3 L (3.4-5.0) gm/dl Globulin 3.4 (2.5-4.0) gm/dl Albumin/Globulin Ratio 1.0 (0.9-2) TSH 2.453 (0.300-4.500) uIu/ml Urine Color Yellow Urine Appearance Clear (Clear) Urine pH 7.5 (4.5-7.5) Ur Specific [place] 1.020 (1.000-1.030) Urine Protein Trace H (Negative) Urine Glucose (UA) Negative (Negative) Urine Ketones Negative (Negative) Urine Blood Negative (Negative) Urine Nitrite Positive A (Negative) Urine Bilirubin Negative (Negative) Urine Urobilinogen Negative (Negative) Ur Leukocyte Esterase 2+ H (Negative) Urine WBC (Auto) >50 H (0-5) /hpf Urine RBC (Auto) 0-2 (0-2) /hpf U Hyaline Cast (Auto) 3-5 H (0-2) /lpf U Epithel Cells (Auto) 0-2 (0-2) /hpf Urine Bacteria (Auto) 4+ H (None Seen) Adenovirus (PCR) Not Detected (NotDetected) B. pertussis DNA (PCR) Not Detected (NotDetected) B.parapertussis DNA PCR Not Detected (NotDetected) C. pneumoniae DNA (PCR) Not Detected (NotDetected) Coronavirus OC43 (PCR) Not Detected (NotDetected) Coronavirus HKU1 (PCR) Not Detected (NotDetected) Coronavirus 229E (PCR) Not Detected (NotDetected) SARS-CoV-2 (PCR) Not Detected (NotDetected) Coronavirus NL63 (PCR) Not Detected (NotDetected) Human Metapneumovir PCR Not Detected (NotDetected) Influenza Type A (PCR) Not Detected (NotDetected) Influenza Type B (PCR) Not Detected (NotDetected) M. pneumoniae (PCR) Not Detected (NotDetected) Parainfluenza 1 (PCR) Not Detected (NotDetected) Parainfluenza 2 (PCR) Not Detected (NotDetected) Parainfluenza 3 (PCR) Not Detected (NotDetected) Parainfluenza 4 (PCR) Not Detected (NotDetected) RSV (PCR) Not Detected (NotDetected) Entero/Rhino (PCR) Not Detected (NotDetected) Administered Medications Discontinued Medications Lorazepam (Lorazepam 2 Mg/1 Ml Vial) 1 mg IM NOW STA Stop: 09/14/24 16:43 Last Admin: 09/14/24 16:48 Dose: 1 mg Documented By: ANGEL LUIS Discharge Plan Visit Data Chief Complaint: Altered Mental Status Stated Complaint: ALTERED MENTAL STATUS ED Provider: Jessica Bhagat Discharge Problem: Acute UTI (urinary tract infection), AMS (altered mental status) Forms Stand Alone Forms: My [facility] Prescriptions Prescriptions: No Action amlodipine 2.5 mg tablet 2.5 mg PO DAILY Qty: 90 3RF lorazepam 0.5 mg tablet 0.5 mg PO DAILY PRN (Reason: insomnia) 30 Days Qty: 30 2RF Rx Instructions: Pt takes at 5:00pm if needed omeprazole 40 mg capsule,delayed release(DR/EC) 40 mg PO DAILY Qty: 90 3RF memantine 10 mg tablet 10 mg PO BID Qty: 60 5RF mupirocin 2 % ointment 1 applic topical BID Qty: 50 3RF folic acid 1 mg tablet 1 mg PO DAILY Rexulti 1 mg tablet 1 mg PO DAILY methotrexate sodium 2.5 mg tablet 12.5 mg PO .Wednesdays Rx Instructions: Takes once a week on Monday ferrous fumarate 325 mg (106 mg iron) tablet 325 mg PO DAILY quetiapine 25 mg tablet 25 mg PO HS terazosin 2 mg capsule 4 mg PO HS latanoprost 0.005 % drops 1 drp OPL HS brimonidine-timolol [Combigan] 0.2-0.5 % drops 1 drp OPL BID simvastatin 40 mg tablet 40 mg PO HS Rx Instructions: TAKE ONE TABLET BY MOUTH EVERY DAY Referrals Referrals: Tanja Luis DO [Primary Care Provider] -
[2024-09-14] MEDS: LORazepam 2 MG/1 ML VIAL IM STA (16:48)
[2024-09-14 18:14] LABS: Basophils # (auto) 0.08 K/uL (0.00-0.20); Basophils % (auto) 0.8 %; Eosinophils # (auto) 0.35 K/uL (0.00-0.50); Eosinophils % (auto) 3.4 %; Hematocrit (blood only) 32.5 % (42.0-52.0); Hemoglobin 10.2 g/dl (14.0-18.0); Immature Granulocytes # (auto) 0.07 K/uL (0.01-0.20); Immature Granulocytes % (auto) 0.7 %; Lymphocytes # (auto) 1.59 K/uL (1.20-3.40); Lymphocytes % (auto) 15.3 %; Mean Corpuscular Hemoglobin 30.5 pg (25.0-34.0); Mean Corpuscular Hgb Conc 31.4 g/dL (32.0-36.0); Mean Corpuscular Volume 97.3 fL (80.0-100.0); Mean Platelet Volume 10.5 fL (9.4-12.4); Monocytes # (auto) 1.09 K/uL (0.11-0.59); Monocytes % (auto) 10.5 %; Neutrophils # (auto) 7.24 K/uL (1.40-6.50); Neutrophils % (auto) 69.3 %; Platelet Count 262 K/uL (130-400); RDW Coefficient of Variation 15.1 % (11.5-14.5); RDW Standard Deviation 54.2 fL (36.4-46.3); Red Blood Count 3.34 M/uL (4.70-6.10); White Blood Count 10.42 K/ul (4.8-10.8)
[2024-09-14 18:15] LABS: Adenovirus PCR Not Detected (NotDetected); Bordetella parapertussis PCR Not Detected (NotDetected); Bordetella pertussis PCR Not Detected (NotDetected); Chlamydia pneumoniae PCR Not Detected (NotDetected); Coronavirus 229E PCR Not Detected (NotDetected); Coronavirus CoV-2 (COVID19)PCR Not Detected (NotDetected); Coronavirus HKU1 PCR Not Detected (NotDetected); Coronavirus NL63 PCR Not Detected (NotDetected); Coronavirus OC43PCR Not Detected (NotDetected); Human Metapneumovirus PCR Not Detected (NotDetected); Influenza A PCR Not Detected (NotDetected); Influenza B PCR Not Detected (NotDetected); Mycoplasma pneumoniae PCR Not Detected (NotDetected); Parainfluenza Virus 1 PCR Not Detected (NotDetected); Parainfluenza Virus 2 PCR Not Detected (NotDetected); Parainfluenza Virus 3 PCR Not Detected (NotDetected); Parainfluenza Virus 4 PCR Not Detected (NotDetected); Respiratory Syncytial VirusPCR Not Detected (NotDetected); Rhinovirus/Enterovirus PCR Not Detected (NotDetected)
[2024-09-14 18:30] LABS: Albumin Level 3.3 gm/dl (3.4-5.0); BUN Creatinine Ratio 31.4 (10-20); Bilirubin,Total 0.4 mg/dl (0.2-1.0); Calcium 8.8 mg/dl (8.6-10.3); Creatinine Clr Calc Pharmacy 42.6 ml/min; Globulin 3.4 gm/dl (2.5-4.0); Potassium 4.2 mmol/L (3.5-5.1); Total Protein 6.7 gm/dl (6.0-8.3)
[2024-09-14 18:36] LABS: Troponin I High Sensitivity 26.7 pg/ml (0-20)
[2024-09-14 18:42] LABS: Appearance Urine Clear (Clear); Bacteria Urine Automated 4+ (None Seen); Bilirubin Urine Negative (Negative); Blood Urine Negative (Negative); Color Urine Yellow; Epithelial Cell Urine Auto 0-2 /hpf (0-2); Glucose Urine UA Negative (Negative); Ketones Urine Negative (Negative); Leukocyte Esterase Urine 2+ (Negative); Nitrite Urine Positive (Negative); Protein Urine Trace (Negative); RBC Urine Automated 0-2 /hpf (0-2); Urobilinogen Urine Negative (Negative); WBC Urine Automated >50 /hpf (0-5); pH Urine 7.5 (4.5-7.5)
[2024-09-14 18:45] LABS: Thyroid Stimulating Hormone 2.453 uIu/ml (0.300-4.500)
--- NOTE | 2024-09-14 19:14 | History & Physical Report ---
Date of Service September 14, 2024 Assessment & Plan (1) Acute UTI (urinary tract infection): Plan: unable to assess if symptomatic due to dementia UA Showing trace protein, positive for nitrates, 2+ leukocyte esterase, >50 WBC, 3-5 hyaline cast, 4+ bacteria no previous urine culture showing growth on file Rocephin started in the ED; continue Rocephin Follow urine cultures clinically dry - BUN/Cr 31.4 - will order gentle fluid resuscitation overnight with 1L NSS (2) Dementia with behavioral disturbance: Plan: combative and yelling for 2 to 3 days [facility] hospice care, application pending for [facility] Possibly acutely worsened with infection above case management consulted for placement for [facility] Associated weakness PT/OT consulted given 1mg IM Ativan in ED; patient lethargic on exam continue Ativan 0.5 mg BID (and Ativan 0.5 mg prn Q4H) continue memantine failed dysaphia screen - NPO, repeat in AM 09/15 (3) Elevated troponin: Plan: 26.7 EKG showing NSR unable to assess if patient has chest pain due to dementia trend trop overnight (4) Bullous pemphigoid: Plan: many healing blisters on torso Continue triamcinolone acetonide topical daily (5) CKD (chronic kidney disease), stage III: Plan: renal function at baseline CR 1.21, BUN 38 trend BMP with UTI above Plan Patient is a 89-year-old male with past medical history of dementia, anemia, stage III CKD, AAA, hypertension, bullous pemphigus. He is being admitted for UTI treatment and placement for aggressive behaviors with dementia as family is unable to care for him at home. Was undergoing hospice care with [facility], application pending for [facility] as per patient's family. Chronic stable diagnoses: anemia of chronic dz - At baseline - Hgb 10.2, HCT 32.5 HTN - On hospice care, No medical management at this time VTE ppx: SCDs - low risk Diet: NPO - Failed dysphagia screen, repeat dysphagia screen in a.m. 09/15 Dispo: med surg Admission and Anticipated Discharge Date Admission Date: 09/14/24 History of Present Illness Chief Complaint: AMS Primary Care Provider: Tanja Luis DO Patient is a 89-year-old male with past medical history of dementia, anemia, stage III CKD, AAA, hypertension, bullous pemphigus. He presents today due to aggressive behaviors with dementia. His and daughters care for him at home and are unable to continue care with his combative behaviors for the past 2 to 3 days. They stated he was up all night last night yelling. He is on hospice care with [facility] for dementia who recommended that he be admitted for placement. They have an application pending at [facility]. His family stated that he has also had weakness of his legs that has gradually worsened but has been acutely worsened for approximately a week. He also has had decreased p.o. intake for the past week. It has been hard to get him to eat or drink anything for the past few days with aggression. They thought that he may have a UTI because he was pulling at his pants today and Saying that he had to urinate more frequently than his baseline. He did get his home medications today. He takes lorazepam 0.5 Mg every morning and every night, they give it to him as needed with aggressive behaviors. He has had 4 tablets total in the past 24 hours. He was given 1 Mg IV in ED and was lethargic on exam. He has a history of bullous pemphigus and uses cream for his blisters. He is DNR/DNI status; discussed with patient's daughters. Allergies Allergy/AdvReac Type Severity Reaction Status Date / Time mold Allergy Intermediate Congested Verified 09/14/24 19:45 pollen extracts Allergy Intermediate Congested Verified 09/14/24 19:45 venlafaxine Allergy Unknown Rash Verified 09/14/24 19:45 Home Medications Medication Instructions Recorded Confirmed Type brimonidine 0.2 %-timolol 0.5 % 1 drp OPL BID 09/16/23 09/14/24 History eye drops (Combigan) latanoprost 0.005 % eye drops 1 drp OPL HS 09/16/23 09/14/24 History memantine 10 mg tablet 10 mg PO BID #60 tabs 07/03/24 09/14/24 Rx lorazepam 0.5 mg tablet 0.5 mg PO BID insomnia 09/14/24 09/14/24 History triamcinolone acetonide 0.5 % 1 applic topical UD 09/14/24 09/14/24 History topical ointment Past Med/Surg History Problem List (Updated 09/14/24 @ 21:54 by Background Daemon) Elevated troponin CKD (chronic kidney disease), stage III AMS (altered mental status) (Acute) Acute UTI (urinary tract infection) (Acute) Rash Leukocytosis Combative behavior (Acute) Bullous pemphigoid Dementia with behavioral disturbance Non-occlusive coronary artery disease Lumbar stenosis with neurogenic claudication Aortic stenosis, mild Elevated PSA Thoracic aortic aneurysm without rupture (Chronic) Right subclavian artery, anomalous origin (Chronic) Raynauds phenomenon (Chronic) Obstructive sleep apnea (Chronic) Gout, joint (Chronic) Gastroesophageal reflux disease (Chronic) Dyslipidemia (Chronic) Depression (Chronic) Dementia (Chronic) Decreased hearing of both ears (Chronic) Carotid artery stenosis without cerebral infarction (Chronic) Anxiety disorder (Chronic) Anemia of chronic disease (Chronic) Hypertension (Chronic) Medical History (Updated 09/14/24 @ 21:54 by Background Daemon) Anemia Insomnia Abdominal aortic aneurysm Diverticulosis of colon Disc degeneration, lumbar Surgical History S/P correction of deviated nasal septum S/P sinus surgery S/P knee replacement S/P TURP (status post transurethral resection of prostate) Family History Brother Prostate cancer Mother Hypertension Hearing loss Father No problems noted. Denies family history of Ovarian cancer Breast cancer Lung cancer Colorectal cancer Social History Smoking Status: Unknown if ever smoked Tobacco Type: Cigarettes Age Started Using Tobacco: 20; Age Quit Using Tobacco: 50; packs per day: 0.25; Second Hand Exposure: No; Do You Dip or Chew Tobacco: No; Hx Alcohol Use: No Hx Substance Use: No Preferred Language: Cymro Communication Ability: Impaired Visual Impairment: Limited Hearing Ability: Hard of Hearing [employer] Required: No Beliefs That Will Affect Care: None marital status: Current Living Situation: Family current occupational status: retired Feels Safe at Home: Yes Childhood Exposure to Second-Hand Smoke: No Diet: regular Diet Comment: regular caffeine: Yes (coffee) during the past year weight has: remained stable Dental Care, Regularly: Yes Physical Activity Frequency: Does not Exercise Physical Activity Frequency Comment: walking when weather good. Seatbelt Use: always Sunscreen Use: No Assistive Devices: Cane, Walker and Wheelchair Review of Systems Review of Systems: Unable to assess given dementia and lethargic Physical Exam Physical Exam: The patient is lethargic, normocephalic and atraumatic, in no acute distress. Non-toxic appearing. Skin - Many healing blister across torso; hx of bullous pemphigus. HEENT- EOMI, mucous membranes dry. Hearing grossly intact. Heart-normal S1 and S2. No murmurs, rubs or gallops. Lungs-clear bilaterally, no respiratory distress, no accessory muscle use. Abdomen-normal bowel sounds and soft. No ascites noted. Non-tender. Extremities- no clubbing, cyanosis, or edema. Results & Data Results & Data Vital Signs (Past 12 Hours) Vital Signs Temp Pulse Pulse Resp BP BP Pulse Ox 09/14/24 17:50 68 20 100 09/14/24 17:48 68 09/14/24 17:48 36.8 C 68 19 127/68 100 09/14/24 16:34 09/14/24 16:34 74 17 161/68 H 98 O2 Del Method 09/14/24 17:50 Room Air 09/14/24 17:48 09/14/24 17:48 Room Air 09/14/24 16:34 Room Air 09/14/24 16:34 Room Air Laboratory Results reviewed CBC, CMP, PT/INR, TSH, UA Diagnostic Findings reviewed CXR Medications Administered ED: Rocephin 2G IV, Ativan 1 Mg IM ECG Additional Comments: nsr Code Status & VTE Plan Code Status DNR/DNI VTE Prophylaxis Plan VTE Prophylaxis will be ordered: Yes Supervising Physician Co-Signing Physician Notes Patient seen and examined, chart reviewed, case discussed with MUNIR Coto and I agree with the assessment and plan as above. In brief, patient is a 89yo male with history of Dementia, CKD, AAA, HTN and bullous pemphigoid - patient is on Hospice Services at home and is currently applying for placement at [facility]. He presents today with behavioral disturbance - aggression. Family is inabiltiy to care for him at home. Patient is sleeping after receiving Ativan in the ER - does not provide any details or history at this time. On exam he is resting comfortably, NAD Skin - no rash HEENT - MMM Heart - +S1/S2, regular Lungs - CTA Abd - soft, NT/ND Ext -warm, well perfused Labs and images reviewed. Stable normochromic/normocytic anemia Elevation of BUN=38 Troponin=28 UA suggestive of infection CXR per my interpretation with no infiltrate, edema or pneumothorax EKG per my interpretation with no acute ischemic changes Assessment/Plan 83yo male with dementia, on home hospice services and awaiting placement to nursing facility [facility] presenting with behavioural disturbance, increased aggression in setting of UTI. Presumed delirium + dementia. -Follow urine culture -Continue Ceftriaxone - no prior cultures in system -Repeat dysphagia screen in AM - NPO for now with aspiration precautions -PT/OT -Trend troponin -Case Management consultation - hopefully will be able to DC directly to [facility] with continued Hospice Services when medically optimized -Ativan as needed for agitation - patient is on this medication at home. -Remainder as above PG Care Time/CCT Total # of Minutes Spent Total Time Spent with Patient: Total time spent is greater than 50% in coordination of care (as documented) at patient's floor/unit and/or counseling patient: Coding Level of Care Code 89076 INT INP/OBS CARE 3/75MIN Diagnoses Acute UTI (urinary tract infection) N39.0 Dementia with behavioral disturbance F03.918 Elevated troponin R79.89 Bullous pemphigoid L12.0 CKD (chronic kidney disease), stage III N18.30 Chronic kidney disease stage 3 subtype: unspecified whether 3a or 3b (5) CKD (chronic kidney disease), stage III Chronic kidney disease stage 3 subtype: unspecified whether 3a or 3b Qualified Code(s): N18.30 - Chronic kidney disease, stage 3 unspecified
[2024-09-14] MEDS: cefTRIAXone SODIUM 2,000 MG/50 ML BAG IV STA (19:28)
[2024-09-14] MEDS: SODIUM CHLORIDE 0.9% 1,000 ML IV SCH (21:22)
[2024-09-14] MEDS ORDERED: LORazepam 0.5 MG TAB PO PRN (22:01)
[2024-09-14] MEDS ORDERED: ACETAMINOPHEN 325 MG TAB PO PRN (22:01)
[2024-09-14] MEDS ORDERED: DOCUSATE SODIUM 100 MG CAP PO PRN (22:01)
[2024-09-14] MEDS ORDERED: TRIAMCINOLONE ACET 0.5% CR 15 GM TUBE EXT PRN (22:06)
[2024-09-14] MEDS: MEMANTINE HCL 10 MG TAB PO SCH (22:47)
[2024-09-14] MEDS: LATANOPROST 0.005% OP SOLN 2.5 ML BTL OPL SCH (22:48)
[2024-09-14] MEDS: COMBIGAN~ORDER AWAITING ACTION SCH (23:25)
[2024-09-15 02:28] LABS: Basophils # (auto) 0.09 K/uL (0.00-0.20); Basophils % (auto) 0.9 %; Eosinophils # (auto) 0.35 K/uL (0.00-0.50); Eosinophils % (auto) 3.6 %; Hemoglobin 9.8 g/dl (14.0-18.0); Immature Granulocytes # (auto) 0.06 K/uL (0.01-0.20); Immature Granulocytes % (auto) 0.6 %; Lymphocytes # (auto) 2.24 K/uL (1.20-3.40); Mean Corpuscular Hemoglobin 30.6 pg (25.0-34.0); Mean Corpuscular Hgb Conc 31.6 g/dL (32.0-36.0); Mean Corpuscular Volume 96.9 fL (80.0-100.0); Mean Platelet Volume 9.9 fL (9.4-12.4); Monocytes # (auto) 1.12 K/uL (0.11-0.59); Monocytes % (auto) 11.5 %; Neutrophils # (auto) 5.86 K/uL (1.40-6.50); Neutrophils % (auto) 60.4 %; Platelet Count 250 K/uL (130-400); RDW Coefficient of Variation 14.8 % (11.5-14.5); RDW Standard Deviation 52.9 fL (36.4-46.3); White Blood Count 9.72 K/ul (4.8-10.8)
[2024-09-15 02:45] LABS: Calcium 8.8 mg/dl (8.6-10.3); Creatinine Clr Calc Pharmacy 45.6 ml/min; Magnesium 1.9 mg/dl (1.7-2.4); Potassium 4.4 mmol/L (3.5-5.1)
--- NOTE | 2024-09-15 08:58 | XRay Report ---
EXAM: XR chest 1V portable CLINICAL HISTORY: WEAKNESS CONFUSION. TECHNIQUE: An X-ray of the chest was performed in frontal projection. COMPARISON: 01/29/2024. FINDINGS: No gross air-space opacities. Linear opacity was noted in the right lower lung zone, likely atelectatic band/scarring (stable). Cardiac size within normal limits. Clear both costophrenic angles. No mediastinal widening. No acute osseous abnormality. IMPRESSION: 1. No acute cardiopulmonary compromise. 2. Right lower lung zone atectatic band/scarring. (Stable). 3. No significant interval changes. Electronically signed by Trever Bonilla 09-15-2024 08:58 AM
--- NOTE | 2024-09-15 12:42 | Hospitalist Progress Note ---
Date of Service September 15, 2024 Assessment & Plan (1) Acute UTI (urinary tract infection): Plan: UA positive for nitrates, 2+ leukocyte esterase, >50 WBC, 3-5 hyaline cast, 4+ bacteria cultures growing Citrobacter koseri, full characterization and sensitivity pendi ng continue empiric Rocephin for now (2) Dementia with behavioral disturbance: Plan: Patient is under hospice care However, admitted because of worsening aggression and combativeness, worsened most likely by the acute infection [facility] hospice care, application pending for [facility] case management consulted for placement for [facility] given 1mg IM Ativan in ED; patient lethargic on exam continue Ativan 0.5 mg BID continue memantine failed dysaphia screen - NPO, repeat in AM 09/15 (3) Elevated troponin: Plan: 26.7 EKG showing NSR unable to assess if patient has chest pain due to dementia trend trop overnight (4) Bullous pemphigoid: Plan: many healing blisters on torso Continue triamcinolone acetonide topical daily (5) CKD (chronic kidney disease), stage III: Plan: renal function at baseline CR 1.21, BUN 38 trend BMP with UTI above Plan Chronic stable diagnoses: anemia of chronic dz - At baseline - Hgb 10.2, HCT 32.5 HTN - On hospice care, No medical management at this time VTE ppx: SCDs - low risk Diet: NPO - Failed dysphagia screen, repeat dysphagia screen in a.m. 09/15 Dispo: med surg Awaiting placement Admission and Anticipated Discharge Date Admission Date: September 14, 2024 Subjective patient seen and examined,sleeping queitly in the ED Review of Systems Review of Systems: unable to assess Physical Exam Physical Exam: The patient is sleeping HEENT--mucous membranes and oropharynx mildly dry Neck--supple. No JVD. No bruits. Thyroid normal, trachea midline, no adenopathy. Heart--normal S1 and S2. No murmurs, rubs or gallops. Lungs--clear bilaterally, no respiratory distress, no accessory muscle use. Abdomen--normal bowel sounds and soft. Extremities--no cyanosis or clubbing. No edema. Dermatologic--normal skin turgor, normal color, no abnormal lymph nodes, no rash. Neurologic--unable to assess Results & Data Results & Data Vital Signs (Past 12 Hours) Vital Signs Pulse Resp BP Pulse Ox O2 Del Method 09/15/24 07:29 69 09/15/24 06:00 62 16 143/74 H 98 Room Air 09/15/24 05:18 67 15 98 Room Air 09/15/24 05:09 68 17 148/82 H 97 Room Air 09/15/24 05:00 70 19 95 Room Air 09/15/24 03:20 70 18 157/89 H 98 Room Air 09/15/24 03:17 150 H 09/15/24 03:00 71 19 164/89 H 100 Room Air 09/15/24 02:03 69 18 143/99 H 100 Room Air 09/15/24 02:00 68 18 143/99 H 96 Room Air 09/15/24 01:25 69 PG Care Time/CCT Total # of Minutes Spent Total Time Spent with Patient: Total time spent is greater than 50% in coordination of care (as documented) at patient's floor/unit and/or counseling patient: Coding Level of Care Code 33171 SUB INP/OBS CARE 2/35MIN Diagnoses Acute UTI (urinary tract infection) N39.0 Dementia with behavioral disturbance F03.918 Elevated troponin R79.89 Bullous pemphigoid L12.0 CKD (chronic kidney disease), stage III N18.30 Chronic kidney disease stage 3 subtype: unspecified whether 3a or 3b Time Spent (min) 35 (5) CKD (chronic kidney disease), stage III Chronic kidney disease stage 3 subtype: unspecified whether 3a or 3b Qualified Code(s): N18.30 - Chronic kidney disease, stage 3 unspecified
[2024-09-15] MEDS: LORazepam 0.5 MG TAB PO SCH (15:43)
[2024-09-15] MEDS: cefTRIAXone SODIUM 2,000 MG/50 ML BAG IV SCH (17:53)
[2024-09-15] MEDS: MELATONIN 3 MG TAB PO PRN (19:42)
--- NOTE | 2024-09-15 21:51 | Electrocardiogram Report ---
Test Reason : Blood Pressure : */* mmHG Vent. Rate : 70 BPM Atrial Rate : 70 BPM P-R Int : 184 ms QRS Dur : 80 ms QT Int : 412 ms P-R-T Axes : 42 -13 64 degrees QTcB Int : 444 ms Normal sinus rhythm Septal infarct (cited on or before 25-Feb-2014) Abnormal ECG When compared with ECG of 16-Sep-2023 15:26, [place] interval has decreased Criteria for Inferior infarct are no longer Present Questionable change in initial forces of Anterior leads Confirmed by Armin Michael ([id number]) on 09/15/2024 9:51:17 PM Referred By: Confirmed By: Armin Michael
--- NOTE | 2024-09-16 12:06 | Hospitalist Progress Note ---
Date of Service September 16, 2024 Assessment & Plan (1) Acute UTI (urinary tract infection): Plan: UA positive for nitrates, 2+ leukocyte esterase, >50 WBC, 3-5 hyaline cast, 4+ bacteria cultures growing Citrobacter koseri, dave sensitive Will switch to PO Cipro 250mg BID (2) Dementia with behavioral disturbance: Plan: Patient is under hospice care However, admitted because of worsening aggression and combativeness, worsened most likely by the acute infection [facility] hospice care, application pending for [facility] case management consulted for placement for [facility] given 1mg IM Ativan in ED; patient lethargic on exam continue Ativan 0.5 mg BID continue memantine Repeat swallow approved him for pureed diet (3) Elevated troponin: Plan: 26.7 EKG showing NSR unable to assess if patient has chest pain due to dementia trend trop overnight (4) Bullous pemphigoid: Plan: many healing blisters on torso Continue triamcinolone acetonide topical daily (5) CKD (chronic kidney disease), stage III: Plan: renal function at baseline CR 1.21, BUN 38 trend BMP with UTI above Plan Chronic stable diagnoses: anemia of chronic dz - At baseline - Hgb 10.2, HCT 32.5 HTN - On hospice care, No medical management at this time VTE ppx: SCDs - low risk Diet: NPO - Failed dysphagia screen, repeat dysphagia screen in a.m. 09/15 Dispo: med surg Awaiting placement Admission and Anticipated Discharge Date Admission Date: September 14, 2024 Subjective patient seen and examined, no new complaints Review of Systems Review of Systems: unreliable due to dementia Physical Exam Physical Exam: The patient is sleeping HEENT--mucous membranes and oropharynx mildly dry Neck--supple. No JVD. No bruits. Thyroid normal, trachea midline, no adenopathy. Heart--normal S1 and S2. No murmurs, rubs or gallops. Lungs--clear bilaterally, no respiratory distress, no accessory muscle use. Abdomen--normal bowel sounds and soft. Extremities--no cyanosis or clubbing. No edema. Dermatologic--normal skin turgor, normal color, no abnormal lymph nodes, no rash. Neurologic--unable to assess Results & Data Results & Data Vital Signs (Past 12 Hours) Vital Signs Pulse Pulse Resp BP Pulse Ox O2 Del Method 09/16/24 11:32 86 20 128/74 99 Room Air 09/16/24 08:33 82 22 130/66 100 Room Air PG Care Time/CCT Total # of Minutes Spent Total Time Spent with Patient: Total time spent is greater than 50% in coordination of care (as documented) at patient's floor/unit and/or counseling patient: Coding Level of Care Code 72653 SUB INP/OBS CARE 2/35MIN Diagnoses Acute UTI (urinary tract infection) N39.0 Dementia with behavioral disturbance F03.918 Elevated troponin R79.89 Bullous pemphigoid L12.0 CKD (chronic kidney disease), stage III N18.30 Chronic kidney disease stage 3 subtype: unspecified whether 3a or 3b Time Spent (min) 35 (5) CKD (chronic kidney disease), stage III Chronic kidney disease stage 3 subtype: unspecified whether 3a or 3b Qualified Code(s): N18.30 - Chronic kidney disease, stage 3 unspecified
[2024-09-16] MEDS: CIPROFLOXACIN 250 MG TAB PO SCH (13:34)
[2024-09-16] MEDS: INFLUENZA VACC TS2024-25(65y+)/PF (IIV3) 0.5mL Syr IM ONE (15:56)
[2024-09-16 17:44] LABS: Hematocrit (blood only) 32.5 % (42.0-52.0); Hemoglobin 10.6 g/dl (14.0-18.0); Mean Corpuscular Hemoglobin 30.4 pg (25.0-34.0); Mean Corpuscular Hgb Conc 32.6 g/dL (32.0-36.0); Mean Corpuscular Volume 93.1 fL (80.0-100.0); Mean Platelet Volume 10.4 fL (9.4-12.4); Platelet Count 283 K/uL (130-400); RDW Coefficient of Variation 14.5 % (11.5-14.5); RDW Standard Deviation 49.5 fL (36.4-46.3); Red Blood Count 3.49 M/uL (4.70-6.10); White Blood Count 11.96 K/ul (4.8-10.8)
[2024-09-16 18:14] LABS: BUN Creatinine Ratio 26.9 (10-20); Calcium 8.6 mg/dl (8.6-10.3); Creatinine Clr Calc Pharmacy 43.2 ml/min
--- NOTE | 2024-09-17 12:05 | Hospitalist Progress Note ---
Date of Service September 17, 2024 Assessment & Plan (1) Acute UTI (urinary tract infection): Plan: UA positive for nitrates, 2+ leukocyte esterase, >50 WBC, 3-5 hyaline cast, 4+ bacteria cultures growing Citrobacter koseri, dave sensitive Will switch to PO Cipro 250mg BID (2) Dementia with behavioral disturbance: Plan: Patient is under hospice care, although this may have to be revoked if he is going to SNF However, admitted because of worsening aggression and combativeness, worsened most likely by the acute infection [facility] hospice care, application pending for [facility] case management consulted for placement for [facility] given 1mg IM Ativan in ED; patient lethargic on exam continue Ativan 0.5 mg BID continue memantine Repeat swallow approved him for pureed diet (3) Elevated troponin: Plan: 26.7 EKG showing NSR unable to assess if patient has chest pain due to dementia (4) Bullous pemphigoid: Plan: many healing blisters on torso Continue triamcinolone acetonide topical daily (5) CKD (chronic kidney disease), stage III: Plan: renal function at baseline CR 1.21, BUN 38 trend BMP with UTI above Plan Chronic stable diagnoses: anemia of chronic dz - At baseline - Hgb 10.2, HCT 32.5 HTN - On hospice care, No medical management at this time VTE ppx: SCDs - low risk Diet: NPO - Failed dysphagia screen, repeat dysphagia screen in a.m. 09/15 Dispo: med surg Awaiting placement Admission and Anticipated Discharge Date Admission Date: September 14, 2024 Subjective patient seen and examined, no new complaints Review of Systems Review of Systems: unreliable due to dementia Physical Exam Physical Exam: The patient is sleeping HEENT--mucous membranes and oropharynx mildly dry Neck--supple. No JVD. No bruits. Thyroid normal, trachea midline, no adenopathy. Heart--normal S1 and S2. No murmurs, rubs or gallops. Lungs--clear bilaterally, no respiratory distress, no accessory muscle use. Abdomen--normal bowel sounds and soft. Extremities--no cyanosis or clubbing. No edema. Dermatologic--normal skin turgor, normal color, no abnormal lymph nodes, no rash. Neurologic--unable to assess Results & Data Results & Data Vital Signs (Past 12 Hours) Vital Signs Temp Pulse Resp BP Pulse Ox O2 Del Method 09/17/24 08:46 98.2 F 76 16 129/76 99 Room Air PG Care Time/CCT Total # of Minutes Spent Total Time Spent with Patient: Total time spent is greater than 50% in coordination of care (as documented) at patient's floor/unit and/or counseling patient: Coding Level of Care Code 58803 SUB INP/OBS CARE 2/35MIN Diagnoses Acute UTI (urinary tract infection) N39.0 Dementia with behavioral disturbance F03.918 Elevated troponin R79.89 Bullous pemphigoid L12.0 CKD (chronic kidney disease), stage III N18.30 Chronic kidney disease stage 3 subtype: unspecified whether 3a or 3b Time Spent (min) 35 (5) CKD (chronic kidney disease), stage III Chronic kidney disease stage 3 subtype: unspecified whether 3a or 3b Qualified Code(s): N18.30 - Chronic kidney disease, stage 3 unspecified
[2024-09-18 06:58] LABS: Hematocrit (blood only) 31.6 % (42.0-52.0); Hemoglobin 10.2 g/dl (14.0-18.0); Mean Corpuscular Hemoglobin 30.6 pg (25.0-34.0); Mean Corpuscular Hgb Conc 32.3 g/dL (32.0-36.0); Mean Corpuscular Volume 94.9 fL (80.0-100.0); Mean Platelet Volume 10.3 fL (9.4-12.4); Platelet Count 262 K/uL (130-400); RDW Coefficient of Variation 14.6 % (11.5-14.5); Red Blood Count 3.33 M/uL (4.70-6.10); White Blood Count 9.36 K/ul (4.8-10.8)
--- NOTE | 2024-09-18 11:16 | Hospitalist Progress Note ---
Date of Service September 18, 2024 Assessment & Plan (1) Acute UTI (urinary tract infection): Plan: UA positive for nitrates, 2+ leukocyte esterase, >50 WBC, 3-5 hyaline cast, 4+ bacteria cultures growing Citrobacter koseri, dave sensitive Will continue PO Cipro 250mg BID (2) Dementia with behavioral disturbance: Plan: Patient is under hospice care, although this may have to be revoked if he is going to SNF However, admitted because of worsening aggression and combativeness, worsened most likely by the acute infection [facility] hospice care, application pending for [facility] case management consulted for placement for [facility] given 1mg IM Ativan in ED; patient lethargic on exam continue Ativan 0.5 mg BID continue memantine Repeat swallow approved him for pureed diet (3) Elevated troponin: Plan: 26.7 EKG showing NSR unable to assess if patient has chest pain due to dementia (4) Bullous pemphigoid: Plan: many healing blisters on torso Continue triamcinolone acetonide topical daily (5) CKD (chronic kidney disease), stage III: Plan: renal function at baseline CR 1.21, BUN 38 trend BMP with UTI above Plan Chronic stable diagnoses: anemia of chronic dz - At baseline - Hgb 10.2, HCT 32.5 HTN - On hospice care, No medical management at this time VTE ppx: SCDs - low risk Diet: soft diet, pureed Dispo: med surg d/c to [facility] tomorrow Admission and Anticipated Discharge Date Admission Date: September 14, 2024 Subjective patient seen and examined, no new complaints Review of Systems Review of Systems: unreliable due to dementia Physical Exam Physical Exam: The patient is sleeping HEENT--mucous membranes and oropharynx mildly dry Neck--supple. No JVD. No bruits. Thyroid normal, trachea midline, no adenopathy. Heart--normal S1 and S2. No murmurs, rubs or gallops. Lungs--clear bilaterally, no respiratory distress, no accessory muscle use. Abdomen--normal bowel sounds and soft. Extremities--no cyanosis or clubbing. No edema. Dermatologic--normal skin turgor, normal color, no abnormal lymph nodes, no rash. Neurologic--unable to assess Results & Data Results & Data Vital Signs (Past 12 Hours) Vital Signs Temp Pulse Resp BP Pulse Ox O2 Del Method 09/18/24 07:36 98.1 F 77 18 138/78 100 Room Air PG Care Time/CCT Total # of Minutes Spent Total Time Spent with Patient: Total time spent is greater than 50% in coordination of care (as documented) at patient's floor/unit and/or counseling patient: Coding Level of Care Code 26003 SUB INP/OBS CARE 2/35MIN Diagnoses Acute UTI (urinary tract infection) N39.0 Dementia with behavioral disturbance F03.918 Elevated troponin R79.89 Bullous pemphigoid L12.0 CKD (chronic kidney disease), stage III N18.30 Chronic kidney disease stage 3 subtype: unspecified whether 3a or 3b Time Spent (min) 35 (5) CKD (chronic kidney disease), stage III Chronic kidney disease stage 3 subtype: unspecified whether 3a or 3b Qualified Code(s): N18.30 - Chronic kidney disease, stage 3 unspecified
[2024-09-18] MEDS: LORazepam 2 MG/1 ML VIAL IV ONE (21:49)
[2024-09-19 09:51] LABS: Hematocrit (blood only) 34.5 % (42.0-52.0); Hemoglobin 11.1 g/dl (14.0-18.0); Mean Corpuscular Hemoglobin 30.5 pg (25.0-34.0); Mean Corpuscular Hgb Conc 32.2 g/dL (32.0-36.0); Mean Corpuscular Volume 94.8 fL (80.0-100.0); Mean Platelet Volume 10.5 fL (9.4-12.4); Platelet Count 292 K/uL (130-400); RDW Coefficient of Variation 14.4 % (11.5-14.5); RDW Standard Deviation 49.6 fL (36.4-46.3); Red Blood Count 3.64 M/uL (4.70-6.10); White Blood Count 11.38 K/ul (4.8-10.8)
[2024-09-19 10:02] LABS: BUN Creatinine Ratio 23.6 (10-20); Calcium 8.9 mg/dl (8.6-10.3); Creatinine Clr Calc Pharmacy 48.5 ml/min; Potassium 4.1 mmol/L (3.5-5.1)
--- NOTE | 2024-09-19 10:38 | Hospitalist Progress Note ---
Date of Service September 19, 2024 Assessment & Plan (1) Acute UTI (urinary tract infection): Plan: UA positive for nitrates, 2+ leukocyte esterase, >50 WBC, 3-5 hyaline cast, 4+ bacteria cultures growing Citrobacter koseri, dave sensitive Initially on Ceftriaoxone, transitioned to PO Cipro 250mg BID (2) Dementia with behavioral disturbance: Plan: Patient is under hospice care, although this may have to be revoked if he is going to SNF However, admitted because of worsening aggression and combativeness, worsened most likely by the acute infection [facility] hospice care, application pending for [facility] case management consulted for placement for [facility] , however, auth was denied Plan is for family appeal continue home Ativan 0.5 mg BID continue memantine Repeat swallow approved him for pureed diet (3) Elevated troponin: Plan: 26.7 EKG showing NSR unable to assess if patient has chest pain due to dementia (4) Bullous pemphigoid: Plan: many healing blisters on torso Continue triamcinolone acetonide topical daily (5) CKD (chronic kidney disease), stage III: Plan: renal function at baseline CR 1.21, BUN 38 trend BMP with UTI above Plan Chronic stable diagnoses: anemia of chronic dz - At baseline - Hgb 10.2, HCT 32.5 HTN - On hospice care, No medical management at this time VTE ppx: SCDs - low risk Diet: soft diet, pureed Dispo: med surg Initial plan was d/c to [facility], however, insurance auth was denied, no room for peer to peer. Plan is family appeal Admission and Anticipated Discharge Date Admission Date: September 14, 2024 Subjective patient seen and examined, no new complaints Review of Systems Review of Systems: unreliable due to dementia Physical Exam Physical Exam: The patient is sleeping HEENT--mucous membranes and oropharynx mildly dry Neck--supple. No JVD. No bruits. Thyroid normal, trachea midline, no adenopathy. Heart--normal S1 and S2. No murmurs, rubs or gallops. Lungs--clear bilaterally, no respiratory distress, no accessory muscle use. Abdomen--normal bowel sounds and soft. Extremities--no cyanosis or clubbing. No edema. Dermatologic--normal skin turgor, normal color, no abnormal lymph nodes, no rash. Neurologic--unable to assess Results & Data Results & Data Vital Signs (Past 12 Hours) Vital Signs Temp Pulse Resp BP BP Pulse Ox O2 Del Method 09/19/24 09:38 98.4 F 92 H 18 90/60 L 98 Room Air 09/19/24 08:15 Room Air 09/18/24 23:13 98.1 F 99 H 12 157/92 H 99 Room Air PG Care Time/CCT Total # of Minutes Spent Total Time Spent with Patient: Total time spent is greater than 50% in coordination of care (as documented) at patient's floor/unit and/or counseling patient: Coding Level of Care Code 44496 SUB INP/OBS CARE 2/35MIN Diagnoses Acute UTI (urinary tract infection) N39.0 Dementia with behavioral disturbance F03.918 Elevated troponin R79.89 Bullous pemphigoid L12.0 CKD (chronic kidney disease), stage III N18.30 Chronic kidney disease stage 3 subtype: unspecified whether 3a or 3b Time Spent (min) 35 (5) CKD (chronic kidney disease), stage III Chronic kidney disease stage 3 subtype: unspecified whether 3a or 3b Qualified Code(s): N18.30 - Chronic kidney disease, stage 3 unspecified
--- NOTE | 2024-09-20 08:13 | Hospitalist Progress Note ---
Date of Service September 20, 2024 Assessment & Plan (1) Acute UTI (urinary tract infection): (2) Dementia with behavioral disturbance: (3) Elevated troponin: (4) Bullous pemphigoid: (5) CKD (chronic kidney disease), stage III: Plan 89-year-old male with past medical history of dementia, anemia, stage III CKD, AAA, hypertension, bullous pemphigus. He is being admitted for UTI treatment and placement for aggressive behaviors with dementia as family is unable to care for him at home. Was undergoing hospice care with [facility], application pending for [facility] as per patient's family. #Acute UTI (urinary tract infection): - UA positive for nitrates, 2+ leukocyte esterase, >50 WBC, 3-5 hyaline cast, 4+ bacteria - cultures growing Citrobacter koseri, dave sensitive - Initially on Ceftriaoxone, transitioned to PO Cipro 250mg BID #Dementia with behavioral disturbance: #Dysphagia - Patient is under [facility] hospice care, although this may have to be revoked if he is going to SNF. Pt admitted because of worsening aggression and combativeness x2-3 days, worsened most likely by the acute infection. - case management consulted for placement for [facility] , however, auth was denied - Plan is for family appeal - continue home Ativan 0.5 mg BID - continue memantine - Repeat swallow approved him for pureed diet #Acute tachycardia - HR 140s to 150s, trended down to 90s - check EKG - trend trop - monitor on tele - will initiate gentle hydration #Elevated troponin: - 26.7 > 28 > 33.2 > 35.1 initially , rpt was 83.8 > 79.6, trend at this time - EKG showing NSR - unable to assess if patient has chest pain due to dementia #Bullous pemphigoid: - many healing blisters on torso - Continue triamcinolone acetonide topical daily #CKD (chronic kidney disease), stage III: - renal function at baseline - CR 1.21, BUN 38 - trend BMP with UTI above #anemia of chronic dz - At baseline - Hgb 10.2, HCT 32.5 #HTN - On hospice care, No medical management at this time VTE ppx: SCDs - low risk Diet: soft diet, pureed Dispo: med surg with tele Initial plan was d/c to [facility], however, insurance auth was denied, no room for peer to peer. Plan is family appeal 09/20: spoke with pt's daughter Kori [phone] regarding how pt was prior to admission and the decline he has had during hospital course. Goal for family is to get pt to previous state prior to UTI to improve his quality of life. She is hoping that rehab will help to improve his decline. She also notes that pt does not participate at all while in bed, however, when in chair, he is more interactive. She had made a recording of this on 09/18, while pt in the hospital. This was shown to PT. Pt does eat on his own and follow some commands, however, it is unlikely that pt will qualify for rehab. Plan is for PT to reassess on Monday and resubmit authorization. Admission and Anticipated Discharge Date Admission Date: September 14, 2024 Subjective No acute events overnight Due to cognition, pt not able to communicate This morning, pt was noted to be tachycardic to 140s - 150s. Pt not on tele Review of Systems Review of Systems: Unable to complete comprehensive ROS due to mentation Physical Exam Physical Exam: Gen: NAD HEENT: NC/AT, dry MM Lungs: CTAB anteriorly CVS: s1s2nl, RRR Abd: soft, NT, nl bS Ext: no edema Results & Data Results & Data Vital Signs (Past 12 Hours) Vital Signs Temp Pulse Pulse Resp BP Pulse Ox O2 Del Method 09/20/24 08:00 147 H 09/20/24 07:37 37.2 C 153 H 16 117/88 98 Room Air PG Care Time/CCT Total # of Minutes Spent Total Time Spent with Patient: Total time spent is greater than 50% in coordination of care (as documented) at patient's floor/unit and/or counseling patient: Coding Level of Care Code 80833 SUB INP/OBS CARE 3/50MIN Diagnoses Acute UTI (urinary tract infection) N39.0 Dementia with behavioral disturbance F03.918 Elevated troponin R79.89 Bullous pemphigoid L12.0 CKD (chronic kidney disease), stage III N18.30 Chronic kidney disease stage 3 subtype: unspecified whether 3a or 3b (5) CKD (chronic kidney disease), stage III Chronic kidney disease stage 3 subtype: unspecified whether 3a or 3b Qualified Code(s): N18.30 - Chronic kidney disease, stage 3 unspecified
[2024-09-20] MEDS: SODIUM CHLORIDE 0.9% 1,000 ML IV ONE (08:33)
[2024-09-20 09:15] LABS: Basophils # (auto) 0.06 K/uL (0.00-0.20); Basophils % (auto) 0.5 %; Eosinophils # (auto) 0.17 K/uL (0.00-0.50); Eosinophils % (auto) 1.3 %; Hematocrit (blood only) 32.8 % (42.0-52.0); Hemoglobin 10.7 g/dl (14.0-18.0); Immature Granulocytes # (auto) 0.07 K/uL (0.01-0.20); Immature Granulocytes % (auto) 0.5 %; Lymphocytes % (auto) 9.9 %; Mean Corpuscular Hemoglobin 30.8 pg (25.0-34.0); Mean Corpuscular Hgb Conc 32.6 g/dL (32.0-36.0); Mean Corpuscular Volume 94.5 fL (80.0-100.0); Mean Platelet Volume 10.3 fL (9.4-12.4); Monocytes # (auto) 1.15 K/uL (0.11-0.59); Monocytes % (auto) 8.8 %; Neutrophils # (auto) 10.36 K/uL (1.40-6.50); Platelet Count 307 K/uL (130-400); RDW Coefficient of Variation 14.5 % (11.5-14.5); RDW Standard Deviation 50.2 fL (36.4-46.3); Red Blood Count 3.47 M/uL (4.70-6.10); White Blood Count 13.11 K/ul (4.8-10.8)
[2024-09-20 09:27] LABS: BUN Creatinine Ratio 25.5 (10-20); Calcium 8.7 mg/dl (8.6-10.3); Creatinine Clr Calc Pharmacy 50.4 ml/min; Magnesium 1.6 mg/dl (1.7-2.4); Potassium 3.7 mmol/L (3.5-5.1)
[2024-09-20 09:45] LABS: Troponin I High Sensitivity 83.8 pg/ml (0-20)
[2024-09-20] MEDS: MAGNESIUM OXIDE 400 MG TAB PO ONE (10:37)
[2024-09-20] MEDS: POTASSIUM CHLORIDE 20 MEQ/15 ML UDC PO ONE (10:38)
[2024-09-20] MEDS: SODIUM CHLORIDE 0.9% 1,000 ML IV SCH (15:08)
--- NOTE | 2024-09-20 21:49 | Electrocardiogram Report ---
Test Reason : Blood Pressure : */* mmHG Vent. Rate : 96 BPM Atrial Rate : 96 BPM P-R Int : 138 ms QRS Dur : 82 ms QT Int : 386 ms P-R-T Axes : 109 72 67 degrees QTcB Int : 487 ms Sinus rhythm with frequent Premature ventricular complexes and Premature atrial complexes Prolonged QT When compared with ECG of 14-Sep-2024 17:25, Premature ventricular complexes are now Present Premature atrial complexes are now Present Questionable change in QRS axis Confirmed by Armin Michael ([id number]) on 09/20/2024 9:48:41 PM Referred By: [facility] Confirmed By: Armin Michael
[2024-09-20] MEDS: BRIMONIDINE TARTRATE 0.2% 5ML OPL SCH (21:53)
[2024-09-20] MEDS: TIMOLOL MALEATE 0.5% OP SOLN 5 ML BTL OPL SCH (21:53)
[2024-09-21 06:20] LABS: Hematocrit (blood only) 29.3 % (42.0-52.0); Hemoglobin 9.4 g/dl (14.0-18.0); Mean Corpuscular Hgb Conc 32.1 g/dL (32.0-36.0); Mean Corpuscular Volume 96.7 fL (80.0-100.0); Mean Platelet Volume 10.2 fL (9.4-12.4); Platelet Count 277 K/uL (130-400); RDW Coefficient of Variation 14.6 % (11.5-14.5); RDW Standard Deviation 51.3 fL (36.4-46.3); Red Blood Count 3.03 M/uL (4.70-6.10); White Blood Count 9.46 K/ul (4.8-10.8)
[2024-09-21 07:17] LABS: BUN Creatinine Ratio 20.2 (10-20); Calcium 8.6 mg/dl (8.6-10.3); Magnesium 1.8 mg/dl (1.7-2.4); Phosphorus 2.7 mg/dl (2.5-4.9); Potassium 4.7 mmol/L (3.5-5.1)
--- NOTE | 2024-09-21 08:07 | Hospitalist Progress Note ---
Date of Service September 21, 2024 Assessment & Plan (1) Acute UTI (urinary tract infection): (2) Dementia with behavioral disturbance: (3) Elevated troponin: (4) Bullous pemphigoid: (5) CKD (chronic kidney disease), stage III: Plan 89-year-old male with past medical history of dementia, anemia, stage III CKD, AAA, hypertension, bullous pemphigus. He is being admitted for UTI treatment and placement for aggressive behaviors with dementia as family is unable to care for him at home. Was undergoing hospice care with [facility], application pending for [facility] as per patient's family. #Acute UTI (urinary tract infection): - UA positive for nitrates, 2+ leukocyte esterase, >50 WBC, 3-5 hyaline cast, 4+ bacteria - cultures growing Citrobacter koseri, dave sensitive - Initially on Ceftriaxone, transitioned to PO Cipro 250mg BID, completed course on 09/21/24 #Dementia with behavioral disturbance: #Dysphagia - Patient is under [facility] hospice care, although this may have to be revoked if he is going to SNF. Pt admitted because of worsening aggression and combativeness x2-3 days, worsened most likely by the acute infection. - case management consulted for placement for [facility] , however, auth was denied - Plan is for family appeal - continue home Ativan 0.5 mg BID - continue memantine - Repeat swallow approved him for pureed diet #Acute tachycardia - HR 140s to 150s, trended down to 90s - check EKG - trend trop - monitor on tele - will initiate gentle hydration #Elevated troponin: - 26.7 > 28 > 33.2 > 35.1 initially , rpt was 83.8 > 79.6 > 65.4 - EKG showing NSR - unable to assess if patient has chest pain due to dementia #Bullous pemphigoid: - many healing blisters on torso - Continue triamcinolone acetonide topical daily #CKD (chronic kidney disease), stage III: - renal function at baseline - CR 1.21, BUN 38 - trend BMP with UTI above #anemia of chronic dz - At baseline - Hgb 10.2, HCT 32.5 #HTN - On hospice care, No medical management at this time #Uneven pupils - discussed with daughter, 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 Plan is family appeal Pt is medically ready for discharge. 09/20: spoke with pt's daughter Kori [phone] regarding how pt was prior to admission and the decline he has had during hospital course. Goal for family is to get pt to previous state prior to UTI to improve his quality of life. She is hoping that rehab will help to improve his decline. She also notes that pt does not participate at all while in bed, however, when in chair, he is more interactive. She had made a recording of this on 09/18, while pt in the hospital. This was shown to PT. Pt does eat on his own and follow some commands, however, it is unlikely that pt will qualify for rehab. Plan is for PT to reassess on Monday and resubmit authorization. 09/21: called pt's daughter Kori, no answer Admission and Anticipated Discharge Date Admission Date: September 14, 2024 Subjective No acute events overnight Due to cognition, pt not able to communicate Pt slightly combative mid morning during vitals check Review of Systems Review of Systems: Unable to obtain comprehensive ROS due to mentation Physical Exam Physical Exam: Gen: NAD HEENT: NC/AT, dry MM, left pupil not reactive, right pupil smaller and reactive Lungs: CTAB anteriorly CVS: II/ YAMILA, RRR Abd: soft, NT, nl bS Ext: no edema Neuro: good electrocardiograph operator, moving extremities equally, follows some commands when mildly alert, but mostly sleeping Results & Data Results & Data Vital Signs (Past 12 Hours) Vital Signs Temp Pulse Pulse Pulse Pulse Resp BP 09/21/24 07:19 09/21/24 03:52 36.5 C 77 18 151/80 H 09/21/24 00:57 09/20/24 23:12 36.6 C 86 18 143/80 H 09/20/24 22:37 75 09/20/24 20:48 76 18 129/68 Pulse Ox O2 Del Method 09/21/24 07:19 Room Air 09/21/24 03:52 99 Room Air 09/21/24 00:57 Room Air 09/20/24 23:12 100 Room Air 09/20/24 22:37 09/20/24 20:48 100 Room Air PG Care Time/CCT Total # of Minutes Spent Total Time Spent with Patient: Total time spent is greater than 50% in coordination of care (as documented) at patient's floor/unit and/or counseling patient: Coding Level of Care Code 03525 SUB INP/OBS CARE 2/35MIN Diagnoses Acute UTI (urinary tract infection) N39.0 Dementia with behavioral disturbance F03.918 Elevated troponin R79.89 Bullous pemphigoid L12.0 CKD (chronic kidney disease), stage III N18.30 Chronic kidney disease stage 3 subtype: unspecified whether 3a or 3b (5) CKD (chronic kidney disease), stage III Chronic kidney disease stage 3 subtype: unspecified whether 3a or 3b Qualified Code(s): N18.30 - Chronic kidney disease, stage 3 unspecified
[2024-09-21] MEDS: SODIUM CHLORIDE 0.9% 1,000 ML IV SCH (15:36)
[2024-09-22 08:20] LABS: Hematocrit (blood only) 28.8 % (42.0-52.0); Hemoglobin 9.2 g/dl (14.0-18.0); Mean Corpuscular Hemoglobin 31.1 pg (25.0-34.0); Mean Corpuscular Hgb Conc 31.9 g/dL (32.0-36.0); Mean Corpuscular Volume 97.3 fL (80.0-100.0); Mean Platelet Volume 10.2 fL (9.4-12.4); Platelet Count 301 K/uL (130-400); RDW Coefficient of Variation 14.4 % (11.5-14.5); RDW Standard Deviation 51.8 fL (36.4-46.3); Red Blood Count 2.96 M/uL (4.70-6.10); White Blood Count 9.35 K/ul (4.8-10.8)
[2024-09-22 08:35] LABS: BUN Creatinine Ratio 23.3 (10-20); Calcium 8.4 mg/dl (8.6-10.3); Creatinine Clr Calc Pharmacy 59.8 ml/min; Magnesium 1.6 mg/dl (1.7-2.4); Potassium 3.6 mmol/L (3.5-5.1)
--- NOTE | 2024-09-22 10:42 | Hospitalist Progress Note ---
Date of Service September 22, 2024 Assessment & Plan (1) Acute UTI (urinary tract infection): (2) Dementia with behavioral disturbance: (3) Elevated troponin: (4) Bullous pemphigoid: (5) CKD (chronic kidney disease), stage III: Plan 83-year-old male with past medical history of dementia, anemia, stage III CKD, AAA, hypertension, bullous pemphigus. He is being admitted for UTI treatment and placement for aggressive behaviors with dementia as family is unable to care for him at home. Was undergoing hospice care with [facility], application pending for [facility] as per patient's family. #Acute UTI (urinary tract infection): resolved - UA positive for nitrates, 2+ leukocyte esterase, >50 WBC, 3-5 hyaline cast, 4+ bacteria - cultures growing Citrobacter koseri, dave sensitive - Initially on Ceftriaxone, transitioned to PO Cipro 250mg BID, completed course on 09/21/24 #Dementia with behavioral disturbance: #Dysphagia - Patient is under [facility] hospice care, although this may have to be revoked if he is going to SNF. Pt admitted because of worsening aggression and combativeness x2-3 days, worsened most likely by the acute infection. - case management consulted for placement for [facility] , however, auth was denied - Plan is for family appeal - continue home Ativan 0.5 mg BID - continue memantine - Repeat swallow approved him for pureed diet #Acute tachycardia - resolved - HR 140s to 150s, trended down to 90s - check EKG - trend trop - monitor on tele - will initiate gentle hydration #Elevated troponin: - 26.7 > 28 > 33.2 > 35.1 initially , rpt was 83.8 > 79.6 > 65.4 - EKG showing NSR - unable to assess if patient has chest pain due to dementia #Bullous pemphigoid: - many healing blisters on torso - Continue triamcinolone acetonide topical daily #CKD (chronic kidney disease), stage III: - renal function at baseline - CR 1.21, BUN 38 - trend BMP with UTI above #anemia of chronic dz - At baseline - Hgb 10.2, HCT 32.5 #HTN - On hospice care, No medical management at this time #Uneven pupils - discussed with daughter, 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, however, insurance auth was denied, no room for peer to peer. Plan is family appeal Pt is medically ready for discharge. 09/20: spoke with pt's daughter Kori [phone] regarding how pt was prior to admission and the decline he has had during hospital course. Goal for family is to get pt to previous state prior to UTI to improve his quality of life. She is hoping that rehab will help to improve his decline. She also notes that pt does not participate at all while in bed, however, when in chair, he is more interactive. She had made a recording of this on 09/18, while pt in the hospital. This was shown to PT. Pt does eat on his own and follow some commands, however, it is unlikely that pt will qualify for rehab. Plan is for PT to reassess on Monday and resubmit authorization. 09/21: called pt's daughter Kori, no answer 09/22: spoke with Kori. Discussed concerns about pt continuing to declining while we await referrals, which may not likely happen. She also brought up that pt is on a waitlist for [facility] and was hoping to get him there through rehab. Pt's is 85 yrs old and is having hard time taking care of him at home. The plan is still for PT / OT to work with pt on Monday when family is present to reassess possibility of rehab placement. Admission and Anticipated Discharge Date Admission Date: September 14, 2024 Subjective No acute events overnight Pt stated that he feels good but no further answers to questions Review of Systems Review of Systems: Unable to obtain comprehensive ROS due to mentation Physical Exam Physical Exam: Gen: NAD HEENT: NC/AT, dry MM, left pupil not reactive, right pupil smaller and reactive Lungs: clear anteriorly, but pt did not take deep breaths CVS: II/ YAMILA, RRR Abd: pt refused abdominal exam Ext: no edema Neuro: wakes up easily but goes right back to sleep while in bed Results & Data Results & Data Vital Signs (Past 12 Hours) Vital Signs Temp Pulse Pulse Pulse Resp BP BP 09/22/24 09:34 36.5 C 77 18 154/66 H 01/19/25 07:08 71 09/22/24 01:49 09/22/24 01:48 74 09/21/24 23:23 82 16 123/61 Pulse Ox O2 Del Method 09/22/24 09:34 100 Room Air 09/22/24 07:08 09/22/24 01:49 Room Air 09/22/24 01:48 09/21/24 23:23 99 Room Air PG Care Time/CCT Total # of Minutes Spent Total Time Spent with Patient: Total time spent is greater than 50% in coordination of care (as documented) at patient's floor/unit and/or counseling patient: Coding Level of Care Code 59454 SUB INP/OBS CARE 235MIN Diagnoses Acute UTI (urinary tract infection) N39.0 Dementia with behavioral disturbance F03.918 Elevated troponin R79.89 Bullous pemphigoid L12.0 CKD (chronic kidney disease), stage III N18.30 Chronic kidney disease stage 3 subtype: unspecified whether 3a or 3b (5) CKD (chronic kidney disease), stage III Chronic kidney disease stage 3 subtype: unspecified whether 3a or 3b Barry lified Code(s): N18.30 - Chronic kidney disease, stage 3 unspecified
[2024-09-22] MEDS: MAGNESIUM OXIDE 400 MG TAB PO SCH (10:50)
[2024-09-23 09:46] LABS: Hematocrit (blood only) 29.4 % (42.0-52.0); Hemoglobin 9.4 g/dl (14.0-18.0); Mean Corpuscular Hemoglobin 31.1 pg (25.0-34.0); Mean Corpuscular Volume 97.4 fL (80.0-100.0); Mean Platelet Volume 11.1 fL (9.4-12.4); Platelet Count 248 K/uL (130-400); RDW Coefficient of Variation 14.4 % (11.5-14.5); RDW Standard Deviation 51.3 fL (36.4-46.3); Red Blood Count 3.02 M/uL (4.70-6.10); White Blood Count 9.85 K/ul (4.8-10.8)
[2024-09-23 10:06] LABS: Anion Gap 5 (3-11); BUN Creatinine Ratio 19.2 (10-20); Blood Urea Nitrogen 20 mg/dl (6-23); Calcium 8.7 mg/dl (8.6-10.3); Carbon Dioxide 27 mmol/L (21-32); Chloride 111 mmol/L (98-107); Creatinine Clr Calc Pharmacy 49.5 ml/min; Glucose 88 mg/dl (70-99(Fasting)); Magnesium 1.7 mg/dl (1.7-2.4); Phosphorus 2.9 mg/dl (2.5-4.9); Sodium 143 mmol/L (136-145)
--- NOTE | 2024-09-23 15:28 | Hospitalist Progress Note ---
Date of Service September 23, 2024 Assessment & Plan (1) Acute UTI (urinary tract infection): (2) Dementia with behavioral disturbance: (3) Elevated troponin: (4) Bullous pemphigoid: (5) CKD (chronic kidney disease), stage III: Plan 83-year-old male with past medical history of dementia, anemia, stage III CKD, AAA, hypertension, bullous pemphigus. He is being admitted for UTI treatment and placement for aggressive behaviors with dementia as family is unable to care for him at home. Was undergoing hospice care with [facility], application pending for [facility] as per patient's family. #Acute UTI (urinary tract infection): resolved and treated - UA positive for nitrates, 2+ leukocyte esterase, >50 WBC, 3-5 hyaline cast, 4+ bacteria - cultures growing Citrobacter koseri, dave sensitive - Initially on Ceftriaxone, transitioned to PO Cipro 250mg BID, completed c ourse on 09/21/24 #Dementia with behavioral disturbance: #Dysphagia - Patient is under [facility] hospice care, although this may have to be revoked if he is going to SNF. Pt admitted because of worsening aggression and combativeness x2-3 days, worsened most likely by the acute infection. - case management consulted for placement for [facility] , however, auth was denied - Plan is for family appeal - continue home Ativan 0.5 mg BID - continue memantine - Repeat swallow approved him for pureed diet #Acute tachycardia - resolved - HR 140s to 150s initially, trended down - monitor on tele -Was treated with gentle hydration during this hospitalization #Elevated troponin: - 26.7 > 28 > 33.2 > 35.1 initially , rpt was 83.8 > 79.6 > 65.4 - EKG showing NSR - unable to assess if patient has chest pain due to dementia #Bullous pemphigoid: - many healing blisters on torso - Continue triamcinolone acetonide topical daily #CKD (chronic kidney disease), stage III: - renal function at baseline Stable - trend BMP with UTI above #anemia of chronic dz - At baseline - Hgb 10.2, HCT 32.5 #HTN - On hospice care, No medical management at this time #Uneven pupils - discussed with daughter, 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 Plan is family appeal Pt is medically ready for discharge. 09/20: spoke with pt's daughter Kori [phone] regarding how pt was prior to admission and the decline he has had during hospital course. Goal for family is to get pt to previous state prior to UTI to improve his quality of life. She is hoping that rehab will help to improve his decline. She also notes that pt does not participate at all while in bed, however, when in chair, he is more interactive. She had made a recording of this on 09/18, while pt in the hospital. This was shown to PT. Pt does eat on his own and follow some commands, however, it is unlikely that pt will qualify for rehab. Plan is for PT to reassess on Monday and resubmit authorization. 09/21: called pt's daughter Kori, no answer 09/22: spoke with Kori. Discussed concerns about pt continuing to declining while we await referrals, which may not likely happen. She also brought up that pt is on a waitlist for [facility] and was hoping to get him there through rehab. Pt's is 85 yrs old and is having hard time taking care of him at home. The plan is still for PT / OT to work with pt on Monday when family is present to reassess possibility of rehab placement. 09/23: PT/OT recommendations in chart. Admission and Anticipated Discharge Date Admission Date: September 14, 2024 Subjective Patient was seen and examined at 12 PM. He did not seem to have any major complaints. He was pleasantly confused. Review of Systems Review of Systems: All systems reviewed & are unremarkable except as noted in Subjective Physical Exam Physical Exam: General: Awake, pleasantly confused Heart: S1, S2/regular rate and rhythm, no murmur rubs or gallops Lungs: Clear to auscultation bilaterally. Normal effort Abdomen: Soft/nontender/nondistended. No hepatosplenomegaly Extremities: No clubbing/cyanosis. No edema Behavior: Appropriate, cooperative Results & Data Results & Data Vital Signs (Past 12 Hours) Vital Signs Temp Pulse Pulse Resp BP Pulse Ox O2 Del Method 09/23/24 09:02 37.1 C 73 16 138/69 98 Room Air 09/23/24 07:32 81 09/23/24 04:59 Room Air 09/23/24 04:58 87 Laboratory Results Abnormal lab results 09/23/24 09/23/24 Range/Units 08:51 10:52 RBC 3.02 L (4.70-6.10) M/uL Hgb 9.4 L (14.0-18.0) g/dl Hct 29.4 L (42.0-52.0) % RDW Std Deviation 51.3 H (36.4-46.3) fL Potassium 3.3 L (3.5-5.1) mmol/L Chloride 111 H (98-107) mmol/L PG Care Time/CCT Total # of Minutes Spent Total Time Spent with Patient: Total time spent is greater than 50% in coordination of care (as documented) at patient's floor/unit and/or counseling patient: Coding Level of Care Code 05616 SUB INP/OBS CARE 235MIN Diagnoses Acute UTI (urinary tract infection) N39.0 Dementia with behavioral disturbance F03.918 Elevated troponin R79.89 Bullous pemphigoid L12.0 CKD (chronic kidney disease), stage III N18.30 Chronic kidney disease stage 3 subtype: unspecified whether 3a or 3b (5) CKD (chronic kidney disease), stage III Chronic kidney disease stage 3 subtype: unspecified whether 3a or 3b Qualified Code(s): N18.30 - Chronic kidney disease, stage 3 unspecified
[2024-09-23] MEDS: POTASSIUM CHLORIDE PWD 20 MEQ PACK PO SCH (22:58)
[2024-09-23] MEDS: POTASSIUM CHLORIDE / WTR 10 MEQ/100 ML PLCT IV SCH (23:51)
[2024-09-24] MEDS: HYALURONIDASE HUMAN 150 UNIT/ML INJ SQ SCH (05:18)
--- NOTE | 2024-09-24 15:57 | Hospitalist Progress Note ---
Date of Service September 24, 2024 Assessment & Plan (1) Acute UTI (urinary tract infection): (2) Dementia with behavioral disturbance: (3) Elevated troponin: (4) Bullous pemphigoid: (5) CKD (chronic kidney disease), stage III: Plan 83-year-old male with past medical history of dementia, anemia, stage III CKD, AAA, hypertension, bullous pemphigus. He is being admitted for UTI treatment and placement for aggressive behaviors with dementia as family is unable to care for him at home. Was undergoing hospice care with [facility], application pending for [facility] as per patient's family. #Acute UTI (urinary tract infection): resolved and treated - UA positive for nitrates, 2+ leukocyte esterase, >50 WBC, 3-5 hyaline cast, 4+ bacteria - cultures growing Citrobacter koseri, dave sensitive - Initially on Ceftriaxone, transitioned to PO Cipro 250mg BID, completed c ourse on 09/21/24 #Metabolic encephalopathy due to UTI Improved #Dementia with behavioral disturbance: #Dysphagia - Patient is under [facility] hospice care, although this may have to be revoked if he is going to SNF. Pt admitted because of worsening aggression and combativeness x2-3 days, worsened most likely by the acute infection. - case management consulted for placement for [facility] , however, auth was denied - Plan is for family appeal - continue home Ativan 0.5 mg BID - continue memantine - Repeat swallow approved him for pureed diet #Acute tachycardia - resolved - HR 140s to 150s initially, trended down - monitor on tele -Was treated with gentle hydration during this hospitalization #Elevated troponin: - 26.7 > 28 > 33.2 > 35.1 initially , rpt was 83.8 > 79.6 > 65.4 - EKG showing NSR - unable to assess if patient has chest pain due to dementia #Bullous pemphigoid: - many healing blisters on torso - Continue triamcinolone acetonide topical daily #CKD (chronic kidney disease), stage III: - renal function at baseline Stable - trend BMP with UTI above #anemia of chronic dz - At baseline - Hgb 10.2, HCT 32.5 #HTN - On hospice care, No medical management at this time #Uneven pupils - discussed with daughter, 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 Plan is family appeal Pt is medically ready for discharge. 09/20: spoke with pt's daughter Kori [phone] regarding how pt was prior to admission and the decline he has had during hospital course. Goal for family is to get pt to previous state prior to UTI to improve his quality of life. She is hoping that rehab will help to improve his decline. She also notes that pt does not participate at all while in bed, however, when in chair, he is more interactive. She had made a recording of this on 09/18, while pt in the hospital. This was shown to PT. Pt does eat on his own and follow some commands, however, it is unlikely that pt will qualify for rehab. Plan is for PT to reassess on Monday and resubmit authorization. 09/21: called pt's daughter Kori, no answer 09/22: spoke with Kori. Discussed concerns about pt continuing to declining while we await referrals, which may not likely happen. She also brought up that pt is on a waitlist for [facility] and was hoping to get him there through rehab. Pt's is 85 yrs old and is having hard time taking care of him at home. The plan is still for PT / OT to work with pt on Monday when family is present to reassess possibility of rehab placement. 09/23: PT/OT recommendations in chart. scientific affairs manager working on discharge to rehab Admission and Anticipated Discharge Date Admission Date: September 14, 2024 Subjective Patient was seen and examined at 12:20 PM. He was accompanied by his at the bedside. No chest pain or shortness of breath. He is pleasantly confused. Review of Systems Review of Systems: All systems reviewed & are unremarkable except as noted in Subjective Physical Exam Physical Exam: General: Awake, pleasantly confused Heart: S1, S2/regular rate and rhythm, no murmur rubs or gallops Lungs: Clear to auscultation bilaterally. Normal effort Abdomen: Soft/nontender/nondistended. No hepatosplenomegaly Extremities: No clubbing/cyanosis. No edema Behavior: Appropriate, cooperative Results & Data Results & Data Vital Signs (Past 12 Hours) Vital Signs Temp Pulse Pulse Resp BP Pulse Ox O2 Del Method 09/24/24 15:30 37.7 C H 87 18 146/86 H 100 Room Air 09/24/24 11:43 36.9 C 91 H 18 144/82 H 100 Room Air 09/24/24 08:00 65 09/24/24 07:39 36.8 C 81 18 137/75 96 Room Air PG Care Time/CCT Total # of Minutes Spent Total Time Spent with Patient: Total time spent is greater than 50% in coordination of care (as documented) at patient's floor/unit and/or counseling patient: Coding Level of Care Code 61821 SUB INP/OBS CARE 2/35MIN Diagnoses Acute UTI (urinary tract infection) N39.0 Dementia with behavioral disturbance F03.918 Elevated troponin R79.89 Bullous pemphigoid L12.0 CKD (chronic kidney disease), stage III N18.30 Chronic kidney disease stage 3 subtype: unspecified whether 3a or 3b (5) CKD (chronic kidney disease), stage III Chronic kidney disease stage 3 subtype: unspecified whether 3a or 3b Qualified Code(s): N18.30 - Chronic kidney disease, stage 3 unspecified
[2024-09-24] MEDS: POTASSIUM CHLORIDE CRTAB 20 MEQ TABCR PO SCH (21:34)
[2024-09-25 08:58] LABS: Potassium 4.1 mmol/L (3.5-5.1)
[2024-09-25 08:59] LABS: Calcium 8.6 mg/dl (8.6-10.3); Creatinine Clr Calc Pharmacy 53.8 ml/min
[2024-09-25 11:54] VITALS: RESP 20; O2SAT 94
[2024-09-25] MEDS: SODIUM CHLORIDE 0.9% 500 ML IV ONE (12:04)
[2024-09-25 12:28] LABS: Hematocrit (blood only) 28.1 % (42.0-52.0); Hemoglobin 9.1 g/dl (14.0-18.0); Mean Corpuscular Hemoglobin 30.5 pg (25.0-34.0); Mean Corpuscular Hgb Conc 32.4 g/dL (32.0-36.0); Mean Corpuscular Volume 94.3 fL (80.0-100.0); Mean Platelet Volume 9.9 fL (9.4-12.4); Platelet Count 318 K/uL (130-400); RDW Standard Deviation 48.5 fL (36.4-46.3); Red Blood Count 2.98 M/uL (4.70-6.10); White Blood Count 10.12 K/ul (4.8-10.8)
--- NOTE | 2024-09-25 14:35 | Hospitalist Progress Note ---
Date of Service September 25, 2024 Assessment & Plan (1) Acute UTI (urinary tract infection): (2) Dementia with behavioral disturbance: (3) Elevated troponin: (4) Bullous pemphigoid: (5) CKD (chronic kidney disease), stage III: Plan 83-year-old male with past medical history of dementia, anemia, stage III CKD, AAA, hypertension, bullous pemphigus. He is being admitted for UTI treatment and placement for aggressive behaviors with dementia as family is unable to care for him at home. Was undergoing hospice care with [facility], application pending for [facility] as per patient's family. #Acute UTI (urinary tract infection): resolved and treated - UA positive for nitrates, 2+ leukocyte esterase, >50 WBC, 3-5 hyaline cast, 4+ bacteria - cultures growing Citrobacter koseri, dave sensitive - Initially on Ceftriaxone, transitioned to PO Cipro 250mg BID, completed c ourse on 09/21/24 #Metabolic encephalopathy due to UTI Initially improved but now declining again #Dementia with behavioral disturbance: #Dysphagia - Patient is under [facility] hospice care, although this may have to be revoked if he is going to SNF. Pt admitted because of worsening aggression and combativeness x2-3 days, worsened most likely by the acute infection. - case management consulted for placement for [facility] , however, auth was denied - Plan is for family appeal - continue home Ativan 0.5 mg BID - continue memantine - Repeat swallow approved him for pureed diet Patient was noted to be coughing after meals 09/24. Swallow eval to be repeated Patient is currently lethargic. N.p.o. and no medications #Acute tachycardia - resolved - HR 140s to 150s initially, trended down - monitor on tele -Was treated with gentle hydration during this hospitalization #Elevated troponin: - 26.7 > 28 > 33.2 > 35.1 initially , rpt was 83.8 > 79.6 > 65.4 - EKG showing NSR - unable to assess if patient has chest pain due to dementia #Bullous pemphigoid: - many healing blisters on torso - Continue triamcinolone acetonide topical daily #CKD (chronic kidney disease), stage III: - renal function at baseline Stable - trend BMP with UTI above #anemia of chronic dz - At baseline - Hgb 10.2, HCT 32.5 #HTN - On hospice care, No medical management at this time #Uneven pupils - discussed with daughter, she stated 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 Plan is family appeal Pt is medically ready for discharge. 09/20: spoke with pt's daughter Kori [phone] regarding how pt was prior to admission and the decline he has had during hospital course. Goal for family is to get pt to previous state prior to UTI to improve his quality of life. She is hoping that rehab will help to improve his decline. She also notes that pt does not participate at all while in bed, however, when in chair, he is more interactive. She had made a recording of this on 09/18, while pt in the hospital. This was shown to PT. Pt does eat on his own and follow some commands, however, it is unlikely that pt will qualify for rehab. Plan is for PT to reassess on Monday and resubmit authorization. 09/21: called pt's daughter Kori, no answer 09/22: spoke with Kori. Discussed concerns about pt continuing to declining while we await referrals, which may not likely happen. She also brought up that pt is on a waitlist for [facility] and was hoping to get him there through rehab. Pt's is 85 yrs old and is having hard time taking care of him at home. The plan is still for PT / OT to work with pt on Monday when family is present to reassess possibility of rehab placement. 09/23: PT/OT recommendations in chart. national sales manager working on discharge to rehab 09/25: Patient is lethargic, hypotensive, saying "I want to ". Discussed with daughter. She is considering comfort care. Explained to her that rehab for therapy is not a good idea. Consult palliative care. The daughter will speak to her family and will get back to me with a decision, most likely comfort care. No escalation of care in the interim Admission and Anticipated Discharge Date Admission Date: September 14, 2024 Subjective I was informed by the nurse today that patient was very lethargic. Not able to take p.o. meds. I was then informed about his low blood pressure readings. He was ordered some fluid bolus. The patient was noted to be lethargic during my encounter. He wakes up with sternal rubs. The nurse also informed me that the patient stated, "I want to " I personally spoke to the patient's daughter on the phone. I updated her about his decline. The daughter realizes that he is declining and he is most likely going to pass soon. She is leaning towards comfort care but would like to discuss this with her family and get back to me. In the meantime, she does not want any escalation of care. Review of Systems Review of Systems: All systems reviewed & are unremarkable except as noted in Subjective Physical Exam Physical Exam: General: Lethargic, wakes to sternal rub Heart: S1, S2/regular rate and rhythm, no murmur rubs or gallops Lungs: Clear to auscultation bilaterally. Normal effort Abdomen: Soft/nontender/nondistended. No hepatosplenomegaly Extremities: No clubbing/cyanosis. No edema Behavior: Unable to assess Results & Data Results & Data Vital Signs (Past 12 Hours) Vital Signs Temp Pulse Pulse Resp BP BP Pulse Ox 09/25/24 13:55 67 09/25/24 11:54 37 C 66 20 88/51 L 94 09/25/24 07:54 37.5 C 86 18 136/80 99 09/25/24 07:10 93 H 09/25/24 03:48 36.5 C 88 18 119/68 96 O2 Del Method 09/25/24 13:55 09/25/24 11:54 Room Air 09/25/24 07:54 Room Air 09/25/24 07:10 09/25/24 03:48 Room Air Laboratory Results Abnormal lab results 09/25/24 09/25/24 Range/Units 08:11 12:01 RBC 2.98 L (4.70-6.10) M/uL Hgb 9.1 L (14.0-18.0) g/dl Hct 28.1 L (42.0-52.0) % RDW Std Deviation 48.5 H (36.4-46.3) fL Glucose 101 H (70-99(Fasting)) mg/dl PG Care Time/CCT Total # of Minutes Spent Total Time Spent with Patient: Total time spent is greater than 50% in coordination of care (as documented) at patient's floor/unit and/or counseling patient: Coding Level of Care Code 69150 SUB INP/OBS CARE 2/35MIN Diagnoses Acute UTI (urinary tract infection) N39.0 Dementia with behavioral disturbance F03.918 Elevated troponin R79.89 Bullous pemphigoid L12.0 CKD (chronic kidney disease), stage III N18.30 Chronic kidney disease stage 3 subtype: unspecified whether 3a or 3b (5) CKD (chronic kidney disease), stage III Chronic kidney disease stage 3 subtype: unspecified whether 3a or 3b Qualified Code(s): N18.30 - Chronic kidney disease, stage 3 unspecified
[2024-09-25 15:39] VITALS: BP 107/59; PULSE 60; TEMP 97
--- NOTE | 2024-09-25 15:41 | Palliative Care Consultation ---
Date of Consultation September 25, 2024 Assessment & Plan (1) Combative behavior: (2) Dementia with behavioral disturbance: (3) Palliative care by specialist: Plan I went by to see Mr Tamir who is unable to engage in the consultation. There was no family present. I will try to call them. Please note, I am in clinic tomorrow returning Monday. Primary team, nursing, care mgt updated Thank you for allowing us to participate in the ongoing care of this patient. Please page with any additional concerns. Lorrie Cardoso DNP Director, Palliative Medicine History of Present Illness Reason for Consultation: likely hospice Attending Physician: Gerardo Encarnacion MD History of Present Illness dementia [facility] inc combativeness no family present at time of my visit pt unable to provide HPI lethargic/somnolent, cannot follow commands or focus Allergies Allergy/AdvReac Type Severity Reaction Status Date / Time mold Allergy Intermediate Congested Verified 09/14/24 19:45 pollen extracts Allergy Intermediate Congested Verified 09/14/24 19:45 venlafaxine Allergy Unknown Rash Verified 09/14/24 19:45 Home Medications Medication Instructions Recorded Confirmed Type brimonidine 0.2 %-timolol 0.5 % 1 drp OPL BID 09/16/23 09/14/24 History eye drops (Combigan) latanoprost 0.005 % eye drops 1 drp OPL HS 09/16/23 09/14/24 History memantine 10 mg tablet 10 mg PO BID #60 tabs 07/03/24 09/14/24 Rx lorazepam 0.5 mg tablet 0.5 mg PO BID insomnia 09/14/24 09/14/24 History triamcinolone acetonide 0.5 % 1 applic topical UD 09/14/24 09/14/24 History topical ointment Patient History Medical History (Updated 09/25/24 @ 15:40 by Karishma Cardoso DNP) Anemia Insomnia Abdominal aortic aneurysm Diverticulosis of colon Disc degeneration, lumbar Surgical History S/P correction of deviated nasal septum S/P sinus surgery S/P knee replacement S/P TURP (status post transurethral resection of prostate) Family History Brother Prostate cancer Mother Hypertension Hearing loss Father No problems noted. Denies family history of Ovarian cancer Breast cancer Lung cancer Colorectal cancer Social History Smoking Status: Unknown if ever smoked Tobacco Type: Cigarettes Age Started Using Tobacco: 20; Age Quit Using Tobacco: 50; packs per day: 0.25; Second Hand Exposure: No; Do You Dip or Chew Tobacco: No; Hx Alcohol Use: No (unable to assess) Hx Substance Use: No (unable to assess) Preferred Language: Lao Communication Ability: Impaired Communication Ability Comment: extensive dementia, does not follow commands or answer questions Visual Impairment: Limited Hearing Ability: Hard of Hearing Sewer Line Photo Inspector Required: No Beliefs That Will Affect Care: None marital status: Current Living Situation: Spouse Current Living Situation Comment: with , [facility] current occupational status: retired Feels Safe at Home: Yes Childhood Exposure to Second-Hand Smoke: No Diet: regular Diet Comment: regular caffeine: Yes (coffee) during the past year weight has: remained stable Dental Care, Regularly: Yes Physical Activity Frequency: Does not Exercise Physical Activity Frequency Comment: walking when weather good. Seatbelt Use: always Sunscreen Use: No Assistive Devices: Hospital Bed and Wheelchair Review of Systems Review of Systems: Unobtainable due to cognitive status and Unobtainable due to reduced consciousness Physical Exam Physical Exam: limited exam lethargic/somnolent unable to participate in exam bitemp wasting pupils sluggish pharynx dry, mm dry, dentition poor neck hyperextended, no stridor resp effort mildly increased with use of accessory muscles noted tachy s1s2 abd softly distended pale, warm skin Results & Data Vital Signs (Past 12 Hours) Vital Signs Temp Pulse Pulse Resp BP BP Pulse Ox 09/25/24 15:37 36.1 C L 60 20 107/59 L 94 09/25/24 13:55 67 09/25/24 11:54 37 C 66 20 88/51 L 94 09/25/24 10:20 09/25/24 07:54 37.5 C 86 18 136/80 99 09/25/24 07:10 93 H 09/25/24 03:48 36.5 C 88 18 119/68 96 O2 Del Method 09/25/24 15:37 Room Air 09/25/24 13:55 09/25/24 11:54 Room Air 09/25/24 10:20 Room Air 09/25/24 07:54 Room Air 09/25/24 07:10 09/25/24 03:48 Room Air Laboratory Results 09/25/24 09/25/24 09/23/24 Range/Units 12:01 08:11 10:52 WBC 10.12 (4.8-10.8) K/ul RBC 2.98 L (4.70-6.10) M/uL Hgb 9.1 L (14.0-18.0) g/dl Hct 28.1 L (42.0-52.0) % MCV 94.3 (80.0-100.0) fL MCH 30.5 (25.0-34.0) pg MCHC 32.4 (32.0-36.0) g/dL RDW Std Deviation 48.5 H (36.4-46.3) fL RDW Coeff of Sue 14.0 (11.5-14.5) % Plt Count 318 (130-400) K/uL MPV 9.9 (9.4-12.4) fL Immature Gran % (Auto) % Neut % (Auto) % Lymph % (Auto) % Dickey % (Auto) % Eos % (Auto) % Baso % (Auto) % Neut # (Auto) (1.40-6.50) K/uL Lymph # (Auto) (1.20-3.40) K/uL Dickey # (Auto) (0.11-0.59) K/uL Eos # (Auto) (0.00-0.50) K/uL Baso # (Auto) (0.00-0.20) K/uL Immature Gran # (Auto) (0.01-0.20) K/uL Sodium 138 (136-145) mmol/L Potassium 4.1 D 3.3 L (3.5-5.1) mmol/L Chloride 105 (98-107) mmol/L Carbon Dioxide 30 (21-32) mmol/L Anion Gap 3 (3-11) BUN 16 (6-23) mg/dl Creatinine 0.94 (0.6-1.4) mg/dl Est Cr Clr Drug Dosing 53.8 ml/min eGFR 79.94 BUN/Creatinine Ratio 17.0 (10-20) Glucose 101 H (70-99(Fasting)) mg/dl Calcium 8.6 (8.6-10.3) mg/dl Phosphorus (2.5-4.9) mg/dl Magnesium (1.7-2.4) mg/dl Troponin I High Sens (0-20) pg/ml 09/23/24 09/22/24 09/21/24 Range/Units 08:51 07:46 05:56 WBC 9.85 9.35 9.46 (4.8-10.8) K/ul RBC 3.02 L 2.96 L 3.03 L (4.70-6.10) M/uL Hgb 9.4 L 9.2 L 9.4 L (14.0-18.0) g/dl Hct 29.4 L 28.8 L 29.3 L (42.0-52.0) % MCV 97.4 97.3 96.7 (80.0-100.0) fL MCH 31.1 31.1 31.0 (25.0-34.0) pg MCHC 32.0 31.9 L 32.1 (32.0-36.0) g/dL RDW Std Deviation 51.3 H 51.8 H 51.3 H (36.4-46.3) fL RDW Coeff of Sue 14.4 14.4 14.6 H (11.5-14.5) % Plt Count 248 301 277 (130-400) K/uL MPV 11.1 10.2 10.2 (9.4-12.4) fL Immature Gran % (Auto) % Neut % (Auto) % Lymph % (Auto) % Dickey % (Auto) % Eos % (Auto) % Baso % (Auto) % Neut # (Auto) (1.40-6.50) K/uL Lymph # (Auto) (1.20-3.40) K/uL Dickey # (Auto) (0.11-0.59) K/uL Eos # (Auto) (0.00-0.50) K/uL Baso # (Auto) (0.00-0.20) K/uL Immature Gran # (Auto) (0.01-0.20) K/uL Sodium 143 140 141 (136-145) mmol/L Potassium TNP 3.6 D 4.7 D (3.5-5.1) mmol/L Chloride 111 H 110 H 110 H (98-107) mmol/L Carbon Dioxide 27 26 29 (21-32) mmol/L Anion Gap 5 4 2 L (3-11) BUN 20 20 20 (6-23) mg/dl Creatinine 1.04 0.86 0.99 (0.6-1.4) mg/dl Est Cr Clr Drug Dosing 49.5 59.8 52.0 ml/min eGFR 71.24 85.91 75.58 BUN/Creatinine Ratio 19.2 23.3 H 20.2 H (10-20) Glucose 88 92 107 H (70-99(Fasting)) mg/dl Calcium 8.7 8.4 L 8.6 (8.6-10.3) mg/dl Phosphorus 2.9 2.7 (2.5-4.9) mg/dl Magnesium 1.7 1.6 L 1.8 (1.7-2.4) mg/dl Troponin I High Sens (0-20) pg/ml 09/20/24 09/20/24 09/20/24 Range/Units 20:30 14:21 08:54 WBC 13.11 H (4.8-10.8) K/ul RBC 3.47 L (4.70-6.10) M/uL Hgb 10.7 L (14.0-18.0) g/dl Hct 32.8 L (42.0-52.0) % MCV 94.5 (80.0-100.0) fL MCH 30.8 (25.0-34.0) pg MCHC 32.6 (32.0-36.0) g/dL RDW Std Deviation 50.2 H (36.4-46.3) fL RDW Coeff of Use 14.5 (11.5-14.5) % Plt Count 307 (130-400) K/uL MPV 10.3 (9.4-12.4) fL Immature Gran % (Auto) 0.5 % Neut % (Auto) 79.0 % Lymph % (Auto) 9.9 % Dickey % (Auto) 8.8 % Eos % (Auto) 1.3 % Baso % (Auto) 0.5 % Neut # (Auto) 10.36 H (1.40-6.50) K/uL Lymph # (Auto) 1.30 (1.20-3.40) K/uL Dickey # (Auto) 1.15 H (0.11-0.59) K/uL Eos # (Auto) 0.17 (0.00-0.50) K/uL Baso # (Auto) 0.06 (0.00-0.20) K/uL Immature Gran # (Auto) 0.07 (0.01-0.20) K/uL Sodium 137 (136-145) mmol/L Potassium 3.7 (3.5-5.1) mmol/L Chloride 103 (98-107) mmol/L Carbon Dioxide 28 (21-32) mmol/L Anion Gap 6 (3-11) BUN 26 H (6-23) mg/dl Creatinine 1.02 (0.6-1.4) mg/dl Est Cr Clr Drug Dosing 50.4 ml/min eGFR 72.92 BUN/Creatinine Ratio 25.5 H (10-20) Glucose 125 H (70-99(Fasting)) mg/dl Calcium 8.7 (8.6-10.3) mg/dl Phosphorus 3.0 (2.5-4.9) mg/dl Magnesium 1.6 L (1.7-2.4) mg/dl Troponin I High Sens 65.4 H* D 79.6 H* 83.8 H* (0-20) pg/ml 09/19/24 Range/Units 09:14 WBC 11.38 H (4.8-10.8) K/ul RBC 3.64 L (4.70-6.10) M/uL Hgb 11.1 L (14.0-18.0) g/dl Hct 34.5 L (42.0-52.0) % MCV 94.8 (80.0-100.0) fL MCH 30.5 (25.0-34.0) pg MCHC 32.2 (32.0-36.0) g/dL RDW Std Deviation 49.6 H (36.4-46.3) fL RDW Coeff of Sue 14.4 (11.5-14.5) % Plt Count 292 (130-400) K/uL MPV 10.5 (9.4-12.4) fL Immature Gran % (Auto) % Neut % (Auto) % Lymph % (Auto) % Dickey % (Auto) % Eos % (Auto) % Baso % (Auto) % Neut # (Auto) (1.40-6.50) K/uL Lymph # (Auto) (1.20-3.40) K/uL Dickey # (Auto) (0.11-0.59) K/uL Eos # (Auto) (0.00-0.50) K/uL Baso # (Auto) (0.00-0.20) K/uL Immature Gran # (Auto) (0.01-0.20) K/uL Sodium 138 (136-145) mmol/L Potassium 4.1 (3.5-5.1) mmol/L Chloride 103 (98-107) mmol/L Carbon Dioxide 29 (21-32) mmol/L Anion Gap 6 (3-11) BUN 25 H (6-23) mg/dl Creatinine 1.06 (0.6-1.4) mg/dl Est Cr Clr Drug Dosing 48.5 ml/min eGFR 69.63 BUN/Creatinine Ratio 23.6 H (10-20) Glucose 151 H (70-99(Fasting)) mg/dl Calcium 8.9 (8.6-10.3) mg/dl Phosphorus (2.5-4.9) mg/dl Magnesium (1.7-2.4) mg/dl Troponin I High Sens (0-20) pg/ml Diagnostic Findings Chest X-Ray 09/14/24 16:42 EXAM: XR chest 1V portable CLINICAL HISTORY: WEAKNESS CONFUSION. TECHNIQUE: An X-ray of the chest was performed in frontal projection. COMPARISON: 01/29/2024. FINDINGS: No gross air-space opacities. Linear opacity was noted in the right lower lung zone, likely atelectatic band/scarring (stable). Cardiac size within normal limits. Clear both costophrenic angles. No mediastinal widening. No acute osseous abnormality. IMPRESSION: 1. No acute cardiopulmonary compromise. 2. Right lower lung zone atectatic band/scarring. (Stable). 3. No significant interval changes. Electronically signed by Trever Bonilla 09-15-2024 08:58 AM PG Care Time/CCT Total # of Minutes Spent Total Time Spent with Patient: Total time spent is greater than 50% in coordination of care (as documented) at patient's floor/unit and/or counseling patient: I spent 60 minutes overall addressing this case: 15min in medical data review/discussion with referring provider(s) and/or preparation for the visit 15 min in direct interaction with the patient/exam 00 min in Advance Care Planning/Goals of Care discussions as detailed above in note (must be >16min) 15 min in subsequent review and synthesis of assessment and plan 15 min communicating with other providers regarding the patient's case: care mgt, nursing, primary team [place] [address] IN/OBS CONSULT LVL 4,60M Patient Type New History Comprehensive Exam Comprehensive Medical Decision Making High Complexity Diagnoses Combative behavior R46.89 Dementia with behavioral disturbance F03.918 Palliative care by specialist Z51.5
[2024-09-25] MEDS ORDERED: ONDANSETRON INJ 2 MG/ML 2 ML VIAL IV PRN (16:42)
[2024-09-25] MEDS ORDERED: GLYCOPYRROLATE 0.2 MG/ML VIAL IV PRN (16:42)
[2024-09-26] MEDS: MoRPHine SULFATE 2 MG/ML CARP IV PRN (09:21)
--- NOTE | 2024-09-26 15:12 | Hospitalist Progress Note ---
Date of Service September 26, 2024 Assessment & Plan (1) Acute UTI (urinary tract infection): (2) Dementia with behavioral disturbance: (3) Elevated troponin: (4) Bullous pemphigoid: (5) CKD (chronic kidney disease), stage III: Plan 83-year-old male with past medical history of dementia, anemia, stage III CKD, AAA, hypertension, bullous pemphigus. He is being admitted for UTI treatment and placement for aggressive behaviors with dementia as family is unable to care for him at home. Was undergoing hospice care with [facility] hospice, application pending for [facility] as per patient's family. #Acute UTI (urinary tract infection): resolved and treated - UA positive for nitrates, 2+ leukocyte esterase, >50 WBC, 3-5 hyaline cast, 4+ bacteria - cultures growing Citrobacter koseri, dave sensitive - Initially on Ceftriaxone, transitioned to PO Cipro 250mg BID, completed c ourse on 09/21/24 Currently comfort measures #Metabolic encephalopathy due to UTI Initially improved but now declining again Comfort measures only #Dementia with behavioral disturbance: #Dysphagia - Patient is under [facility] hospice care, although this may have to be revoked if he is going to SNF. Pt admitted because of worsening aggression and combativeness x2-3 days, worsened most likely by the acute infection. - case management consulted for placement for [facility] , however, auth was denied - Plan was for family appeal - Repeat swallow approved him for pureed diet Patient was noted to be coughing after meals 09/24. Comfort measures only. Comfort feeding #Acute tachycardia - resolved - HR 140s to 150s initially, trended down -Was treated with gentle hydration during this hospitalization Consult emergency room #Elevated troponin: - 26.7 > 28 > 33.2 > 35.1 initially , rpt was 83.8 > 79.6 > 65.4 - EKG showing NSR - unable to assess if patient has chest pain due to dementia Comfort measures only #Bullous pemphigoid: - many healing blisters on torso Comfort measures only #CKD (chronic kidney disease), stage III: - renal function at baseline Comfort measures only #anemia of chronic dz - At baseline - Hgb 10.2, HCT 32.5 #HTN - On hospice care, No medical management at this time #Uneven pupils - discussed with daughter, 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, however, insurance auth was denied, no room for peer to peer. Plan is family appeal Pt is medically ready for discharge. 09/20: spoke with pt's daughter Kori [phone] regarding how pt was prior to admission and the decline he has had during hospital course. Goal for family is to get pt to previous state prior to UTI to improve his quality of life. She is hoping that rehab will help to improve his decline. She also notes that pt does not participate at all while in bed, however, when in chair, he is more interactive. She had made a recording of this on 09/18, while pt in the hospital. This was shown to PT. Pt does eat on his own and follow some commands, however, it is unlikely that pt will qualify for rehab. Plan is for PT to reassess on Monday and resubmit authorization. 09/21: called pt's daughter Kori, no answer 09/22: spoke with Kori. Discussed concerns about pt continuing to declining while we await referrals, which may not likely happen. She also brought up that pt is on a waitlist for [facility] and was hoping to get him there through rehab. Pt's is 85 yrs old and is having hard time taking care of him at home. The plan is still for PT / OT to work with pt on Monday when family is present to reassess possibility of rehab placement. 09/23: PT/OT recommendations in chart. manager outreach working on discharge to rehab 09/25: Patient is lethargic, hypotensive, saying "I want to ". Discussed with daughter. She is considering comfort care. Explained to her that rehab for therapy is not a good idea. Consult palliative care. The daughter will speak to her family and will get back to me with a decision, most likely comfort care. No escalation of care in the interim 09/26. Comfort measures only. Case management on board to help with disposition Admission and Anticipated Discharge Date Admission Date: September 14, 2024 Subjective Patient was seen and examined at 10:50 AM. I had a conversation with the patient's daughter last evening and a decision was made to switch goals of care back to comfort measures only. Review of Systems Review of Systems: Unobtainable due to cognitive status Physical Exam Physical Exam: General: Sleeping. He was able to wake up and answer a few simple questions for me. He appears comfortable. Results & Data Results & Data Vital Signs (Past 12 Hours) Vital Signs O2 Del Method 09/26/24 09:38 Room Air PG Care Time/CCT Total # of Minutes Spent Total Time Spent with Patient: Total time spent is greater than 50% in coordination of care (as documented) at patient's floor/unit and/or counseling patient: Coding Level of Care Code 94404 SUB INP/OBS CARE 09/28MIN Diagnoses Acute UTI (urinary tract infection) N39.0 Dementia with behavioral disturbance F03.918 Elevated troponin R79.89 Bullous pemphigoid L12.0 CKD (chronic kidney disease), stage III N18.30 Chronic kidney disease stage 3 subtype: unspecified whether 3a or 3b (5) CKD (chronic kidney disease), stage III Chronic kidney disease stage 3 subtype: unspecified whether 3a or 3b Qualified Code(s): N18.30 - Chronic kidney disease, stage 3 unspecified
[2024-09-26] MEDS: LORazepam 2 MG/1 ML VIAL IV PRN (19:23)
--- NOTE | 2024-09-27 12:39 | Communication Note ---
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 We will sing off, he has no acute/refractory EOL sx mgt needs and remains comfortable overall.Please call or page me if re engagement is needed to assist with intensifying EOL sx mgt needs Pt not seen, NO charge submitted. TS 12min Thank you for allowing us to participate in the ongoing care of this patient. Please page with any additional concerns. Lorrie Cardoso DNP Director, Palliative Medicine
--- NOTE | 2024-09-27 14:20 | Hospitalist Progress Note ---
Date of Service September 27, 2024 Assessment & Plan (1) Acute UTI (urinary tract infection): (2) Dementia with behavioral disturbance: (3) Elevated troponin: (4) Bullous pemphigoid: (5) CKD (chronic kidney disease), stage III: Plan 83-year-old male with past medical history of dementia, anemia, stage III CKD, AAA, hypertension, bullous pemphigus. He is being admitted for UTI treatment and placement for aggressive behaviors with dementia as family is unable to care for him at home. Was undergoing hospice care with [facility] hospice, application pending for [facility] as per patient's family. #Acute UTI (urinary tract infection): resolved and treated - UA positive for nitrates, 2+ leukocyte esterase, >50 WBC, 3-5 hyaline cast, 4+ bacteria - cultures growing Citrobacter koseri, dave sensitive - Initially on Ceftriaxone, transitioned to PO Cipro 250mg BID, completed c ourse on 09/21/24 Currently comfort measures #Metabolic encephalopathy due to UTI Initially improved but now declining again Comfort measures only #Dementia with behavioral disturbance: #Dysphagia - Patient is under [facility] hospice care, although this may have to be revoked if he is going to SNF. Pt admitted because of worsening aggression and combativeness x2-3 days, worsened most likely by the acute infection. - case management consulted for placement for [facility] , however, auth was denied - Plan was for family appeal - Repeat swallow approved him for pureed diet Patient was noted to be coughing after meals 09/24. Comfort measures only. Comfort feeding #Acute tachycardia - resolved - HR 140s to 150s initially, trended down -Was treated with gentle hydration during this hospitalization Consult emergency room #Elevated troponin: - 26.7 > 28 > 33.2 > 35.1 initially , rpt was 83.8 > 79.6 > 65.4 - EKG showing NSR - unable to assess if patient has chest pain due to dementia Comfort measures only #Bullous pemphigoid: - many healing blisters on torso Comfort measures only #CKD (chronic kidney disease), stage III: - renal function at baseline Comfort measures only #anemia of chronic dz - At baseline - Hgb 10.2, HCT 32.5 #HTN - On hospice care, No medical management at this time #Uneven pupils - discussed with daughter, 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 Plan is family appeal Pt is medically ready for discharge. 09/20: spoke with pt's daughter Kori [phone] regarding how pt was prior to admission and the decline he has had during hospital course. Goal for family is to get pt to previous state prior to UTI to improve his quality of life. She is hoping that rehab will help to improve his decline. She also notes that pt does not participate at all while in bed, however, when in chair, he is more interactive. She had made a recording of this on 09/18, while pt in the hospital. This was shown to PT. Pt does eat on his own and follow some commands, however, it is unlikely that pt will qualify for rehab. Plan is for PT to reassess on Monday and resubmit authorization. 09/21: called pt's daughter Kori, no answer 09/22: spoke with Kori. Discussed concerns about pt continuing to declining while we await referrals, which may not likely happen. She also brought up that pt is on a waitlist for [facility] and was hoping to get him there through rehab. Pt's is 85 yrs old and is having hard time taking care of him at home. The plan is still for PT / OT to work with pt on Monday when family is present to reassess possibility of rehab placement. 09/23: PT/OT recommendations in chart. technical program manager working on discharge to rehab 09/25: Patient is lethargic, hypotensive, saying "I want to ". Discussed with daughter. She is considering comfort care. Explained to her that rehab for therapy is not a good idea. Consult palliative care. The daughter will speak to her family and will get back to me with a decision, most likely comfort care. No escalation of care in the interim 09/26. Comfort measures only. Case management on board to help with disposition Admission and Anticipated Discharge Date Admission Date: September 14, 2024 Subjective Patient was seen and examined at 11:40 AM Review of Systems Review of Systems: Unobtainable due to cognitive status Physical Exam Physical Exam: General: Sleeping. He was able to wake up and answer a few simple questions for me. He appears comfortable. Results & Data Results & Data Vital Signs (Past 12 Hours) Vital Signs O2 Del Method 09/27/24 09:00 Room Air PG Care Time/CCT Total # of Minutes Spent Total Time Spent with Patient: Total time spent is greater than 50% in coordination of care (as documented) at patient's floor/unit and/or counseling patient: Coding Level of Care Code 54964 SUB INP/OBS CARE 09/28MIN Diagnoses Acute UTI (urinary tract infection) N39.0 Dementia with behavioral disturbance F03.918 Elevated troponin R79.89 Bullous pemphigoid L12.0 CKD (chronic kidney disease), stage III N18.30 Chronic kidney disease stage 3 subtype: unspecified whether 3a or 3b (5) CKD (chronic kidney disease), stage III Chronic kidney disease stage 3 subtype: unspecified whether 3a or 3b Qualified Code(s): N18.30 - Chronic kidney disease, stage 3 unspecified
--- NOTE | 2024-09-28 12:22 | Hospitalist Progress Note ---
Date of Service September 28, 2024 Assessment & Plan (1) Acute UTI (urinary tract infection): (2) Dementia with behavioral disturbance: (3) Elevated troponin: (4) Bullous pemphigoid: (5) CKD (chronic kidney disease), stage III: Plan 83-year-old male with past medical history of dementia, anemia, stage III CKD, AAA, hypertension, bullous pemphigus. He is being admitted for UTI treatment and placement for aggressive behaviors with dementia as family is unable to care for him at home. Was undergoing hospice care with [facility] hospice, application pending for [facility] as per patient's family. #Acute UTI (urinary tract infection): resolved and treated - UA positive for nitrates, 2+ leukocyte esterase, >50 WBC, 3-5 hyaline cast, 4+ bacteria - cultures growing Citrobacter koseri, dave sensitive - Initially on Ceftriaxone, transitioned to PO Cipro 250mg BID, completed c ourse on 09/21/24 Currently comfort measures #Metabolic encephalopathy due to UTI Initially improved but now declining again Comfort measures only #Dementia with behavioral disturbance: #Dysphagia - Patient is under [facility] hospice care, although this may have to be revoked if he is going to SNF. Pt admitted because of worsening aggression and combativeness x2-3 days, worsened most likely by the acute infection. - case management consulted for placement for [facility] , however, auth was denied - Plan was for family appeal - Repeat swallow approved him for pureed diet Patient was noted to be coughing after meals 09/24. Comfort measures only. Comfort feeding #Acute tachycardia - resolved - HR 140s to 150s initially, trended down -Was treated with gentle hydration during this hospitalization Consult emergency room #Elevated troponin: - 26.7 > 28 > 33.2 > 35.1 initially , rpt was 83.8 > 79.6 > 65.4 - EKG showing NSR - unable to assess if patient has chest pain due to dementia Comfort measures only #Bullous pemphigoid: - many healing blisters on torso Comfort measures only #CKD (chronic kidney disease), stage III: - renal function at baseline Comfort measures only #anemia of chronic dz - At baseline - Hgb 10.2, HCT 32.5 #HTN - On hospice care, No medical management at this time #Uneven pupils - discussed with daughter, 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 Plan is family appeal Pt is medically ready for discharge. 09/20: spoke with pt's daughter Kori [phone] regarding how pt was prior to admission and the decline he has had during hospital course. Goal for family is to get pt to previous state prior to UTI to improve his quality of life. She is hoping that rehab will help to improve his decline. She also notes that pt does not participate at all while in bed, however, when in chair, he is more interactive. She had made a recording of this on 09/18, while pt in the hospital. This was shown to PT. Pt does eat on his own and follow some commands, however, it is unlikely that pt will qualify for rehab. Plan is for PT to reassess on Monday and resubmit authorization. 09/21: called pt's daughter Kori, no answer 09/22: spoke with Kori. Discussed concerns about pt continuing to declining while we await referrals, which may not likely happen. She also brought up that pt is on a waitlist for [facility] and was hoping to get him there through rehab. Pt's is 85 yrs old and is having hard time taking care of him at home. The plan is still for PT / OT to work with pt on Monday when family is present to reassess possibility of rehab placement. 09/23: PT/OT recommendations in chart. manager helpdesk working on discharge to rehab 09/25: Patient is lethargic, hypotensive, saying "I want to ". Discussed with daughter. She is considering comfort care. Explained to her that rehab for therapy is not a good idea. Consult palliative care. The daughter will speak to her family and will get back to me with a decision, most likely comfort care. No escalation of care in the interim 09/26. Comfort measures only. Case management on board to help with disposition Admission and Anticipated Discharge Date Admission Date: September 14, 2024 Subjective Patient was seen and examined at 9:10 AM. Nurse did not report any concerns. Review of Systems Review of Systems: Unobtainable due to cognitive status Physical Exam Physical Exam: General: Sleeping. He appears comfortable. PG Care Time/CCT Total # of Minutes Spent Total Time Spent with Patient: Total time spent is greater than 50% in coordination of care (as documented) at patient's floor/unit and/or counseling patient: Coding Level of Care Code 48105 SUB INP/OBS CARE 09/28MIN Diagnoses Acute UTI (urinary tract infection) N39.0 Dementia with behavioral disturbance F03.918 Elevated troponin R79.89 Bullous pemphigoid L12.0 CKD (chronic kidney disease), stage III N18.30 Chronic kidney disease stage 3 subtype: unspecified whether 3a or 3b (5) CKD (chronic kidney disease), stage III Chronic kidney disease stage 3 subtype: unspecified whether 3a or 3b Qualified Code(s): N18.30 - Chronic kidney disease, stage 3 unspecified
[2024-09-29] MEDS ORDERED: MoRPHine SULFATE 10 MG/0.5 ML UDP PO PRN (08:21)
--- NOTE | 2024-09-29 13:26 | Hospitalist Progress Note ---
Date of Service September 29, 2024 Assessment & Plan (1) Acute UTI (urinary tract infection): (2) Dementia with behavioral disturbance: (3) Elevated troponin: (4) Bullous pemphigoid: (5) CKD (chronic kidney disease), stage III: Plan 83-year-old male with past medical history of dementia, anemia, stage III CKD, AAA, hypertension, bullous pemphigus. He is being admitted for UTI treatment and placement for aggressive behaviors with dementia as family is unable to care for him at home. Was undergoing hospice care with [facility] hospice, application pending for [facility] as per patient's family. #Acute UTI (urinary tract infection): resolved and treated - UA positive for nitrates, 2+ leukocyte esterase, >50 WBC, 3-5 hyaline cast, 4+ bacteria - cultures growing Citrobacter koseri, dave sensitive - Initially on Ceftriaxone, transitioned to PO Cipro 250mg BID, completed c ourse on 09/21/24 Currently comfort measures #Metabolic encephalopathy due to UTI Initially improved but now declining again Comfort measures only #Dementia with behavioral disturbance: #Dysphagia - Patient is under [facility] hospice care, although this may have to be revoked if he is going to SNF. Pt admitted because of worsening aggression and combativeness x2-3 days, worsened most likely by the acute infection. - case management consulted for placement for [facility] , however, auth was denied - Plan was for family appeal - Repeat swallow approved him for pureed diet Patient was noted to be coughing after meals 09/24. Comfort measures only. Comfort feeding #Acute tachycardia - resolved - HR 140s to 150s initially, trended down -Was treated with gentle hydration during this hospitalization Consult emergency room #Elevated troponin: - 26.7 > 28 > 33.2 > 35.1 initially , rpt was 83.8 > 79.6 > 65.4 - EKG showing NSR - unable to assess if patient has chest pain due to dementia Comfort measures only #Bullous pemphigoid: - many healing blisters on torso Comfort measures only #CKD (chronic kidney disease), stage III: - renal function at baseline Comfort measures only #anemia of chronic dz - At baseline - Hgb 10.2, HCT 32.5 #HTN - On hospice care, No medical management at this time #Uneven pupils - discussed with daughter, 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 Plan is family appeal Pt is medically ready for discharge. 09/20: spoke with pt's daughter Kori [phone] regarding how pt was prior to admission and the decline he has had during hospital course. Goal for family is to get pt to previous state prior to UTI to improve his quality of life. She is hoping that rehab will help to improve his decline. She also notes that pt does not participate at all while in bed, however, when in chair, he is more interactive. She had made a recording of this on 09/18, while pt in the hospital. This was shown to PT. Pt does eat on his own and follow some commands, however, it is unlikely that pt will qualify for rehab. Plan is for PT to reassess on Monday and resubmit authorization. 09/21: called pt's daughter Kori, no answer 09/22: spoke with Kori. Discussed concerns about pt continuing to declining while we await referrals, which may not likely happen. She also brought up that pt is on a waitlist for [facility] and was hoping to get him there through rehab. Pt's is 85 yrs old and is having hard time taking care of him at home. The plan is still for PT / OT to work with pt on Monday when family is present to reassess possibility of rehab placement. 09/23: PT/OT recommendations in chart. project engineering manager working on discharge to rehab 09/25: Patient is lethargic, hypotensive, saying "I want to ". Discussed with daughter. She is considering comfort care. Explained to her that rehab for therapy is not a good idea. Consult palliative care. The daughter will speak to her family and will get back to me with a decision, most likely comfort care. No escalation of care in the interim 09/26. Comfort measures only. Case management on board to help with disposition Admission and Anticipated Discharge Date Admission Date: September 14, 2024 Subjective Patient was seen and examined at 9:55 AM. His daughter was in the room. Per nurse he ate his breakfast this morning. Review of Systems Review of Systems: Unobtainable due to cognitive status Physical Exam Physical Exam: General: Awake but not conversational. He appears comfortable. PG Care Time/CCT Total # of Minutes Spent Total Time Spent with Patient: Total time spent is greater than 50% in coordination of care (as documented) at patient's floor/unit and/or counseling patient: Coding Level of Care Code 01267 SUB INP/OBS CARE 2/35MIN Diagnoses Acute UTI (urinary tract infection) N39.0 Dementia with behavioral disturbance F03.918 Elevated troponin R79.89 Bullous pemphigoid L12.0 CKD (chronic kidney disease), stage III N18.30 Chronic kidney disease stage 3 subtype: unspecified whether 3a or 3b (5) CKD (chronic kidney disease), stage III Chronic kidney disease stage 3 subtype: unspecified whether 3a or 3b Qualified Code(s): N18.30 - Chronic kidney disease, stage 3 unspecified
--- NOTE | 2024-09-30 12:49 | Discharge Summary ---
Date of Service September 30, 2024 Admission HPI Per Admitting Provider Patient is a 89-year-old male with past medical history of dementia, anemia, stage III CKD, AAA, hypertension, bullous pemphigus. He presents today due to aggressive behaviors with dementia. His and daughters care for him at home and are unable to continue care with his combative behaviors for the past 2 to 3 days. They stated he was up all night last night yelling. He is on hospice care with [facility] for dementia who recommended that he be admitted for placement. They have an application pending at [facility]. His family stated that he has also had weakness of his legs that has gradually worsened but has been acutely worsened for approximately a week. He also has had decreased p.o. intake for the past week. It has been hard to get him to eat or drink anything for the past few days with aggression. They thought that he may have a UTI because he was pulling at his pants today and Saying that he had to urinate more frequently than his baseline. He did get his home medications today. He takes lorazepam 0.5 Mg every morning and every night, they give it to him as needed with aggressive behaviors. He has had 4 tablets total in the past 24 hours. He was given 1 Mg IV in ED and was lethargic on exam. He has a history of bullous pemphigus and uses cream for his blisters. He is DNR/DNI status; discussed with patient's daughters. Admission Exam Per Admitting Provider The patient is lethargic, normocephalic and atraumatic, in no acute distress. Non-toxic appearing. Skin - Many healing blister across torso; hx of bullous pemphigus. HEENT- EOMI, mucous membranes dry. Hearing grossly intact. Heart-normal S1 and S2. No murmurs, rubs or gallops. Lungs-clear bilaterally, no respiratory distress, no accessory muscle use. Abdomen-normal bowel sounds and soft. No ascites noted. Non-tender. Extremities- no clubbing, cyanosis, or edema. Principal Diagnosis Acute metabolic encephalopathy due to urinary tract infection. Treated Dementia with behavioral disturbance Dysphagia Discharge Exam General: Awake but not conversational. He appears comfortable. Discharge Data Allergies Allergy/AdvReac Type Severity Reaction Status Date / Time mold Allergy Intermediate Congested Verified 09/14/24 19:45 pollen extracts Allergy Intermediate Congested Verified 09/14/24 19:45 venlafaxine Allergy Unknown Rash Verified 09/14/24 19:45 Consultations 09/14/24 19:05 ED Decision to Admit Stat 09/25/24 14:23 Consult Palliative Care Routine Ordered Studies Chest X-Ray 09/14/24 16:42 EXAM: XR chest 1V portable CLINICAL HISTORY: WEAKNESS CONFUSION. TECHNIQUE: An X-ray of the chest was performed in frontal projection. COMPARISON: 01/29/2024. FINDINGS: No gross air-space opacities. Linear opacity was noted in the right lower lung zone, likely atelectatic band/scarring (stable). Cardiac size within normal limits. Clear both costophrenic angles. No mediastinal widening. No acute osseous abnormality. IMPRESSION: 1. No acute cardiopulmonary compromise. 2. Right lower lung zone atectatic band/scarring. (Stable). 3. No significant interval changes. Electronically signed by Trever Bonilla 09-15-2024 08:58 AM Hospital Course (1) Acute UTI (urinary tract infection): (2) Dementia with behavioral disturbance: (3) Elevated troponin: (4) Bullous pemphigoid: (5) CKD (chronic kidney disease), stage III: Plan 83-year-old male with past medical history of dementia, anemia, stage III CKD, AAA, hypertension, bullous pemphigus. He is being admitted for UTI treatment and placement for aggressive behaviors with dementia as family is unable to care for him at home. Was undergoing hospice care with [facility], application pending for [facility] as per patient's family. #Acute UTI (urinary tract infection): resolved and treated - UA positive for nitrates, 2+ leukocyte esterase, >50 WBC, 3-5 hyaline cast, 4+ bacteria - cultures growing Citrobacter koseri, dave sensitive - Initially on Ceftriaxone, transitioned to PO Cipro 250mg BID, completed course on 09/21/24 Currently comfort measures #Metabolic encephalopathy due to UTI Initially improved but now declining again Comfort measures only #Dementia with behavioral disturbance: #Dysphagia - Patient is under [facility] hospice care, although this may have to be revoked if he is going to SNF. Pt admitted because of worsening aggression and combativeness x2-3 days, worsened most likely by the acute infection. - case management consulted for placement for [facility] , however, auth was denied - Plan was for family appeal - Repeat swallow approved him for pureed diet Patient was noted to be coughing after meals 09/24. Comfort measures only. Comfort feeding #Acute tachycardia - resolved - HR 140s to 150s initially, trended down -Was treated with gentle hydration during this hospitalization #Elevated troponin: - 26.7 > 28 > 33.2 > 35.1 initially , rpt was 83.8 > 79.6 > 65.4 - EKG showing NSR - unable to assess if patient has chest pain due to dementia Comfort measures only #Bullous pemphigoid: - many healing blisters on torso Comfort measures only #CKD (chronic kidney disease), stage III: - renal function at baseline Comfort measures only #anemia of chronic dz - At baseline - Hgb 10.2, HCT 32.5 #HTN - On hospice care, No medical management at this time #Uneven pupils - discussed with daughter, 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 Goal for family is to get pt to previous state prior to UTI to improve his quality of life. She is hoping that rehab will help to improve his decline. She also notes that pt does not participate at all while in bed, however, when in chair, he is more interactive. She had made a recording of this on 09/18, while pt in the hospital. This was shown to PT. Pt does eat on his own and follow some commands, however, it is unlikely that pt will qualify for rehab. Plan is for PT to reassess on Monday and resubmit authorization. 09/21: called pt's daughter Kori, no answer 09/22: spoke with Kori. Discussed concerns about pt continuing to declining while we await referrals, which may not likely happen. She also brought up that [facility] and was hoping to get him there through rehab. Pt's is 85 yrs old and is having hard time taking care of him at home. The plan is still for PT / OT to work with pt on Monday when family is present to reassess possibility of rehab placement. 09/23: PT/OT recommendations in chart. project manager working on discharge to rehab 09/25: Patient is lethargic, hypotensive, saying "I want to ". Discussed with daughter. She is considering comfort care. Explained to her that rehab for therapy is not a good idea. Consult palliative care. The daughter will speak to her family and will get back to me with a decision, most likely comfort care. No escalation of care in the interim 09/26. Comfort measures only. Case management on board to help with disposition 09/30: Family decided to take the patient home with hospice. Comfort care medications ordered. Total Time Total Time Spent Total Time Spent (In Minutes): 35 Discharge Plan Discharge Items Patient Disposition: Hospice - Home Reason For Visit: UTI,DEMENTIA,PLACEMENT Discharge Diagnosis: Acute metabolic encephalopathy due to urinary tract infection. Treated Dementia with behavioral disturbance Dysphagia Activity: As commented below Activity Comment: Per comfort Non-emergency contact: Primary Care Provider Call non-emergency contact if: you have any medication questions and your symptoms worsen Follow-up/Referrals: Tanja Luis DO [Primary Care Provider] - Diet: Other - See Diet Comment Diet Comment: Per comfort Addtl Attending Provider Instructions: Advised to note that you are being discharged to home with hospice Advised to follow-up with PCP as needed Pending Studies at Discharge: No Stand-Alone Forms: My [facility] Medications and DC Order Prescriptions: New morphine 10 mg/5 mL solution 15 mg PO Q4H Qty: 100 0RF morphine 10 mg/5 mL solution 10 mg PO Q1H PRN (Reason: pain) Qty: 100 0RF Rx Instructions: use for pain or shortness of breath Continued memantine 10 mg tablet 10 mg PO BID Qty: 60 5RF latanoprost 0.005 % drops 1 drp OPL HS brimonidine-timolol [Combigan] 0.2-0.5 % drops 1 drp OPL BID lorazepam 0.5 mg tablet 0.5 mg PO BID triamcinolone acetonide 0.5 % ointment 1 applic TOPICAL UD Discharge Orders: Discharge Order (Routine); Ordered 09/30/24 Ordered By: Gerardo Portillo/Other Patient Handouts: What Is Palliative Care, Hospice Managing Pain, Hospice- Caring for Your Loved One Admission Data Admit Date/Time: 09/14/24 19:38 Attending Provider: Gerardo Encarnacion Admit Provider: Tatianna Hubbard Primary Care Provider: Tanja Luis. Other Providers: Saul Delgado; Tatianna Hubbard; Hilda Rivera; Karishma Cardoso
== END 2024-09-30 14:48 | disposition hospice, home (50) | DRG 689 ==
LOC: ED 16:22 → SUATTDRO 19:38 → EDINP 19:38 → 3E 22:00 → 2N 09-20 14:55 → 3E 09-25 22:34